=== PATIENT | female | born 1935 | race Caucasian/White ===

== ENCOUNTER 2016-07-27 09:51 | Emergency (ER) | payer MEDICARE ==
[~2016-07-27] VITALS: Ht 154.9 cm; Wt 81.8 kg
[~2016-07-27 09:51] MED LIST: INDA1.252 PO; LISI40TA PO
--- NOTE | 2016-07-27 10:09 | ED.REPORT ---
HPI-General Illness Date of Service Jul 27, 2016 ED Provider: Dr. Vini Alexander, Nicole.O. 81 year old female w/ a hx of HTN, hyperlipidemia, dementia, anxiety, and panic attacks presents to the ED via EMS from [facility] due to a panic attack and SOB. Per medics, patient was tachypneic, anxious, and agitated in her room. She was given 1 mg Versed en route and is now more calm, alert, knows where she is, but unable to verbalize why she is here. Pt is unable to give PMHx or ROS. Nursing Notes Stated Complaint: ANXIETY Nursing Notes Reviewed: Yes Allergies: Coded Allergies: No Known Allergies (Verified , 10/14/07) Scheduled Indapamide (Indapamide) 1.25 Mg Tablet 1.25 MG PO DAILY Lisinopril (Lisinopril) 40 Mg Tablet 40 MG PO DAILY General Time Seen by MD: 10:08 Chief Complaint Other (shortness of breath) Hx Obtained From: Patient, EMS Arrived By: Ambulance Sudden in Onset?: Yes Onset Occurred: Just prior to arrival Symptom Duration: Since onset Severity: Current: No pain currently Past Medical History Past Medical History Hypertension Hyperlipidemia dementia anxiety panic attacks Past Surgical History Left hip surgery Reports: Hysterectomy, Tonsillectomy Family History Cancer Smoking History Former Smoker, Unknown if Ever Smoker Social History Drug Use: Denies drug use Other Social History: Lives in [facility], Local resident Ambulatory Status Independent Review of Systems Unable to Obtain ROS Patient condition Physical Exam Vital Signs Vital Signs Date Time Temp Pulse Resp B/P Pulse Ox O2 Delivery O2 Flow Rate FiO2 07/27/16 14:24 61 19 164/52 100 07/27/16 11:20 60 18 169/72 96 Nasal Cannula 2 07/27/16 10:18 35.8 61 14 127/79 100 Nasal Cannula 2 Initial VS: Reviewed Head / Eyes: Atraumatic, Normocephalic, PERRL ENT: Mucous membranes moist, Conjunctiva normal, No scleral icterus Respiratory: Breath sounds normal, Clear to auscultation, No respiratory distress Cardiovascular: Regular rate & rhythm, Heart sounds normal, Intact distal pulses Abdomen / GI: Soft, Non-tender, No guarding, No rebound, No distention Extremities: Vascular intact, Neuro intact, No swelling, No tenderness Skin: Warm, Dry, No cyanosis Neurologic: Alert, Oriented, Nonfocal Psychiatric: Mood/affect normal, Behavior normal, Normal thought content General/Constitutional: Awake Alertness: Positive: Confused Distress / Hydration: Positive: Distress mild Behavior: Positive: Agitated, Anxious, Tearful Interpretation & Diagnostics Lab Results Interpretation Result Diagram: 07/27/16 1032 07/27/16 1032 Test 07/27/16 10:32 07/27/16 11:30 07/27/16 12:25 07/27/16 13:50 White Blood Count 10.1th/mm3 (3.8-10.1) Red Blood Count 4.74mil/mm3 (3.90-5.20) Hemoglobin 14.6g/dL (12.0-15.6) Hematocrit 41.5% (35.0-46.0) Mean Corpuscular Volume 87.6fL (81-100) Mean Corpuscular Hemoglobin 30.8pg (27.0-35.0) Mean Corpuscular Hemoglobin Concent 35.2% (32.0-37.0) Red Cell Distribution Width 14.4% (12.3-15.4) Platelet Count 410bil/L (150-400) Neutrophils (%) (Auto) 41.8% (40-74) Lymphocytes (%) (Auto) 47.1% (14-46) Monocytes (%) (Auto) 8.4% (4-12) Eosinophils (%) (Auto) 1.6% (0-5) Basophils (%) (Auto) 0.4% (0-3) Sodium Level 135mEq/L (134-144) Potassium Level 4.2mEq/L (3.5-5.2) Chloride Level 97mEq/L (97-108) Carbon Dioxide Level 19mmol/L (18-29) Blood Urea Nitrogen 16mg/dL (8-27) Creatinine 0.85mg/dL (0.57-1.00) Estimat Glomerular Filtration Rate 92mL/min (>59) Glucose Level 181mg/dL (60-99) Calcium Level 9.1mg/dL (8.5-10.1) Magnesium Level 2.1mg/dL (1.6-2.6) Total Bilirubin 0.8mg/dL (0.0-1.2) Aspartate Amino Transf (AST/SGOT) 22U/L (0-50) Alanine Aminotransferase (ALT/SGPT) 22U/L (0-32) Alkaline Phosphatase 63U/L (25-165) Total Protein 7.2g/dL (6.4-8.4) Albumin 4.3g/dL (3.4-5.0) D-Dimer 1.2mg/L (<0.50) Urine Color Straw (YELLOW) Urine Appearance Hazy (CLEAR,HAZY) Urine pH 7.5 (5.0-8.0) Urine Specific [place] 1.010 (1.003-1.035) Urine Protein Negativemg/dL (NEG,TRACE) Urine Glucose (UA) Negativemg/dL (NEGATIVE) Urine Ketones Negativemg/dL (NEGATIVE) Urine Occult Blood Negative (NEGATIVE) Urine Nitrite Negative (NEGATIVE) Urine Bilirubin Negative (NEGATIVE) Urine Urobilinogen Normalmg/dL (NORMAL) Urine Leukocyte Esterase Negative (NEGATIVE) Urine RBC 0-2/hpf (0-2) Urine WBC 0-5/hpf (0-5) Urine Epithelial Cells Occasional/hpf (NONE-MOD) Urine Crystals None seen (NONE SEEN) Urine Bacteria None/hpf (NONE-FEW) Urine Hyaline Casts None/lpf (NONE) Urine Granular Casts None seen (NONE SEEN) Urine Waxy Casts None seen (NONE SEEN) Urine Red Blood Cell Casts None seen (NONE SEEN) Urine White Blood Cell Casts None seen (NONE SEEN) Urine Mucus None seen (None Seen) Urine Trichomonas None seen (NONE SEEN) Urine Yeast None (NONE SEEN) Urinalysis Comment None Urine Culture Reflexed Not indicated Troponin T < 0.010ug/L (0.0-0.011) Test 07/27/16 14:33 Lactic Acid Level 1.6mmol/L (0.4-2.0) ECG Interpretation Time: 10:55 Interpreted by: ED physician Normal ECG Interpretation: Normal ECG w/ rate of... (61) X-Ray Chest Interpretation Chest Xray Interpretation: IMPRESSION: 1. Linear bibasilar opacities redemonstrated likely representing scarring or atelectasis. 2. Moderate-sized hiatal hernia. Dictated by: Pascual Garcia M.D. on 07/27/2016 at 10:48 Approved by: Pascual Garcia M.D. on 07/27/2016 at 10:51 View: Portable Interpretation / Wet Read by: Interpret - Radiologist Re-Eval/Medical Decision Med Decision/Clinical Course No obvious etiology for patient's dyspnea can be found. I discussed with patient's PCP who will follow the patient up. Return in follow-up impressions given. Time of Eval: 14:48 Patient Status: Condition improved Re-Evaluation/Progress Note: Pt rechecked. Imaging does not show any signs of acute abnormalities. She is feeling slightly better after taking Versed but still a bit anxious, which is baseline. F/U and RTER warnings given. All questions addressed. Consultation : Referral / Consult Name: Radha Leo Consulted With: Primary care physician Call Returned at: 14:49 Speedboat Operator: Agrees with eval, Agrees with plan Note: Case discussed. No clinical reasons to admit patient. Patient is very anxious, but this is baseline for her. Counseled Regarding: Diagnosis, Lab results, Need for follow-up, When/why to return to ED Discharge & Departure Primary Impression: Dyspnea Dyspnea type: unspecified Qualified Code: R06.00 - Dyspnea, unspecified Disposition: Home Discharge Condition All VS Reviewed: Yes Condition: Stable Additional Instructions: After reviewing your labs and imaging, your results are normal and there are no signs of bladder infection, heart attack, blood clots, or pneumonia. Follow up with your primary care physician as needed. Return to the Emergency Department if you experience any new or worsening symptoms. We hope you feel better soon! Referrals: Radha Leo (PCP) Scribe Attestation Portion of this note were transcribed by Ninoska Das. I, Dr. Alexander, personally performed the history, physical exam, and medical decision-making: I reviewed and confirmed the accuracy for the information in the transcribed note. Signed by: alcon Skinner, 07/27/16 1500 copies to: Radha Leo Timothy S DO Jul 27, 2016 10:09 NINOSKA DAS Jul 27, 2016 10:25
[2016-07-27 10:18] VITALS: BP 127/79; PULSE 61; RESP 14; O2SAT 100
[2016-07-27] MEDS ORDERED: 0.9% Sodium Chloride 500 ML IV ONE ×2 (10:30→11:30)
[2016-07-27 10:35] LABS: BASOPHILS % (AUTO) 0.4 % (0-3); EOSINOPHILS % (AUTO) 1.6 % (0-5); MONOCYTES % (AUTO) 8.4 % (4-12); Mean Corpuscular Hemoglobin 30.8 pg (27.0-35.0); Mean Corpuscular Volume 87.6 fL (81-100); NEUTROPHILS % (AUTO) 41.8 % (40-74); Platelet Count 410 bil/L (150-400)
[2016-07-27 10:48] LABS: TROPONIN T 0.01 ug/L (0.0-0.011)
--- NOTE | 2016-07-27 10:53 | DRSVH ---
PROCEDURE: X-RAY CHEST ONE VIEW, PORTABLE ([id number]) INDICATIONS: dyspnea TECHNIQUE: One view of the chest was acquired. COMPARISON: [facility], CR, XR CHEST 2VW, 03/19/2016, 11:56. FINDINGS: Surgical changes and devices: None. Lungs and pleura: No pleural effusions or pneumothorax. There are linear opacities redemonstrated i n the lung bases likely representing scarring or atelectasis. Mediastinum: Mediastinal contours appear unchanged. There is a moderate-sized hiatal hernia again n oted. Heart size is normal. Bones and chest wall: No suspicious bony lesions. Overlying soft tissues appear unremarkable. IMPRESSION: 1. Linear bibasilar opacities redemonstrated likely representing scarring or atelectasis. 2. Moderate-sized hiatal hernia. Dictated by: Pascual Garcia M.D. on 07/27/2016 at 10:48 Approved by: Pascual Garcia M.D. on 07/27/2016 at 10:51
[2016-07-27 10:59] LABS: Magnesium 2.1 mg/dL (1.6-2.6)
[2016-07-27 11:20] VITALS: BP 169/72; PULSE 60; RESP 18; O2SAT 96
[2016-07-27 12:36] LABS: APPEARANCE,URINE HAZY (CLEAR,HAZY); COLOR,URINE STRAW (YELLOW); OCCULT BLOOD,URINE NEGATIVE (NEGATIVE); PH,URINE 7.5 (5.0-8.0); UROBILINOGEN,URINE NORMAL (NORMAL)
[2016-07-27 14:24] VITALS: BP 164/52; PULSE 61; RESP 19; O2SAT 100
--- NOTE | 2016-07-27 14:38 | DRSVH ---
PROCEDURE: CT ANGIO CHEST PULMONARY EMBOLISM ([id number]) INDICATIONS: dyspnea, elevated ddimer TECHNIQUE: After the administration of intravenous contrast, 2 mm thick sections acquired from the pulmonary api davis to the posterior costophrenic angles. 3-dimensional maximum intensity projection (MIP) coronal a nd sagittal reformats were then acquired through the thorax. For radiation dose reduction, the follo wing was used: automated exposure control, adjustment of mA and/or kV according to patient size. COMPARISON: [facility], CT, CT ABD PELVIS W CON, 04/23/2016, 15:56. [facility], CT, CT ANGIO CHEST PE, 03/19/2016, 13:22. FINDINGS: Image quality: Excellent. Pulmonary arteries: Pulmonary arteries are normal in size, and demonstrate no intraluminal filling d efects to suggest central pulmonary embolism. Lungs and pleura: There are biapical scars. Small subpleural nodules in the gravity dependent subple ural air within upper lobes are probably caused by subpleural scarring/atelectasis. Lungs are otherwi se clear. No pleural effusions or pneumothorax. Central and peripheral airways are patent. Mediastinum: Heart size is normal, without pericardial effusion. No mediastinal or hilar adenopathy . Thoracic aorta is normal in caliber and enhancement. Esophagus is normal in caliber. There is a l arge hiatal hernia. Bones and chest wall: No suspicious bony lesions. Ribs and thoracic spine appear intact throughout. Thyroid gland is normal. No axillary or supraclavicular adenopathy. Abdomen: Irregular soft tissue nodules posterior to liver are again noted, unchanged. There is a 3.6 cm diameter cyst in the superior pole of the left kidney.. IMPRESSION: 1. No evidence for central pulmonary embolism. 2. Moderate to large sized hiatal hernia. 3. Severe hepatic steatosis. 4. Irregular soft tissue nodules posterior to liver are stable. 5. Left renal cyst . Dictated by: Lisa Rice M.D. on 07/27/2016 at 14:23 Approved by: Lisa Rice M.D. on 07/27/2016 at 14:37
[2016-07-27 15:23] VITALS: BP 155/45; PULSE 71; RESP 20; O2SAT 98
== END 2016-07-27 15:24 | disposition home or self-care (01) ==
LOC: EDUNIT# 09:51 → EDBD 09:51 → SED 09:51
DX: R06.00 Dyspnea, unspecified (principal); I10 Essential (primary) hypertension; E78.5 Hyperlipidemia, unspecified; Z90.710 Acquired absence of both cervix and uterus; Z87.891 Personal history of nicotine dependence
CPT/HCPCS: 36415; 71010; 71275; 80053; 81000; 83605; 83735; 84484; 85025; 85379; 93005; 96360; 99285; J7040; Q9967

== ENCOUNTER 2016-08-28 15:11 | Inpatient (IN) | payer MEDICARE ==
[~2016-08-28] VITALS: Ht 157.5 cm; Wt 77.2 kg
[2016-08-28 15:15] VITALS: BP 137/72; PULSE 61; RESP 15; O2SAT 100
--- NOTE | 2016-08-28 15:29 | ED.REPORT ---
HPI-General Illness Date of Service Aug 28, 2016 ED Provider: Farzad Pardo MD An 81 year old female with a medical history including hypertension, dementia, and abdominal mass of unclear etiology presents to the ED via EMS accompanied by her close friend reporting an "anxiety attack" onset 1200 this morning. Associated symptoms include headache, confusion, generalized pain, and shortness of breath per the patient's friend. The patient was given 2mg Ativan at 1300 today. There is also concern for generalized weakness as staff at the patient's assisted living home found her sitting on the floor this morning and the history was unclear as to whether she fell or sat down. She has had increasing episodes of anxiety with similar symptoms over the past few months, with no prior history of anxiety. The patient presents uncomfortable-appearing but denies pain currently. She is only mildly cooperative and history is limited due to the patient's condition and baseline dementia. EMS found the patient with a BP of 169/83 and otherwise normal vital signs. The patient was seen in the ED four days ago with similar symptoms. Nursing Notes Stated Complaint: ANXIETY ATTACK Chief Complaint: General Complaint Nursing Notes Reviewed: Yes ([employer] not reconciled) Allergies: Coded Allergies: No Known Allergies (Verified , 10/14/07) Scheduled Citalopram (Citalopram) 10 Mg Tablet 10 MG PO QAM Indapamide (Indapamide) 1.25 Mg Tablet 1.25 MG PO QAM Lisinopril (Lisinopril) 40 Mg Tablet 40 MG PO DAILY Scheduled PRN Lorazepam (Lorazepam) 1 Mg Tablet 1 MG PO DAILY PRN PRN For Anxiety or Agitation General Time Seen by MD: 15:26 Chief Complaint Other (Anxiety) Hx Obtained From: Other family... (Close friend) Unable to Obtain Hx: Patient condition, Uncooperative Arrived By: Ambulance Sudden in Onset?: Yes Onset Occurred: 1 - 4 hours ago Symptom Duration: Since onset Location: : Abdomen: Back: Chest: Head Severity: Current: No pain currently (Patient appears uncomfortable but denies pain) Severity: Maximum: Moderate Associated with: Reports: Headache, Pain (Generalized), Shortness of breath Pertinent Negative: Relieved by nothing Recent Healthcare: Recent doctor visit Similar Sx Previous: Yes Past Medical History Past Medical History Hypertension Hyperlipidemia Dementia Anxiety Panic attacks Abdominal Mass of unclear etiology and signficance - being followed Past Surgical History Left hip surgery Reports: Hysterectomy, Tonsillectomy Family History Cancer Smoking History Never Smoker Social History Drug Use: Denies drug use Other Social History: Lives in [facility], Local resident Ambulatory Status Independent Review of Systems Unable to Obtain ROS Patient condition, Uncooperative, Mental status Physical Exam Vital Signs Vital Signs Date Time Temp Pulse Resp B/P Pulse Ox O2 Delivery O2 Flow Rate FiO2 08/28/16 17:39 78 17 140/69 99 Room Air 08/28/16 16:14 60 9 139/46 100 Room Air 08/28/16 15:15 36.6 61 15 137/72 100 Room Air Initial VS: Reviewed, Unavailable (no vitals on chart, ordered) Respiratory: Breath sounds normal, Clear to auscultation, No respiratory distress Abdomen / GI: Soft, Non-tender Skin: Warm, Dry General/Constitutional: Awake, Alert Behavior: Positive: Anxious Appearance / Presentation: Positive: Uncomfortable (Appears uncomfortable but denies pain) Only mildly cooperative Head / Eyes: Atraumatic, Normocephalic Pupils 3mm bilaterally Cardiovascular: Heart rate NL, Regular rhythm, Heart sounds NL Trace edema bilaterally Lower Extremity / Pelvis / MS: Atraumatic, Inspection NL NEUROLOGIC: No focal deficits Interpretation & Diagnostics Lab Results Interpretation Result Diagram: 08/28/16 1549 08/28/16 1549 Test 08/28/16 15:25 08/28/16 15:49 08/28/16 17:17 Hold Urine Received (Received) White Blood Count 12.7th/mm3 (3.8-10.1) Red Blood Count 4.63mil/mm3 (3.90-5.20) Hemoglobin 14.0g/dL (12.0-15.6) Hematocrit 39.2% (35.0-46.0) Mean Corpuscular Volume 84.7fL (81-100) Mean Corpuscular Hemoglobin 30.2pg (27.0-35.0) Mean Corpuscular Hemoglobin Concent 35.7% (32.0-37.0) Red Cell Distribution Width 13.8% (12.3-15.4) Platelet Count 409bil/L (150-400) Neutrophils (%) (Auto) 64.0% (40-74) Lymphocytes (%) (Auto) 23.5% (14-46) Monocytes (%) (Auto) 9.8% (4-12) Eosinophils (%) (Auto) 1.3% (0-5) Basophils (%) (Auto) 0.6% (0-3) Sodium Level 130mEq/L (134-144) Potassium Level 3.4mEq/L (3.5-5.2) Chloride Level 91mEq/L (97-108) Carbon Dioxide Level 19mmol/L (18-29) Blood Urea Nitrogen 22mg/dL (8-27) Creatinine 0.94mg/dL (0.57-1.00) Estimat Glomerular Filtration Rate 82mL/min (>59) Glucose Level 131mg/dL (60-99) Lactic Acid Level 1.5mmol/L (0.4-2.0) Calcium Level 9.6mg/dL (8.5-10.1) Magnesium Level 2.2mg/dL (1.6-2.6) Total Bilirubin 0.6mg/dL (0.0-1.2) Aspartate Amino Transf (AST/SGOT) 26U/L (0-50) Alanine Aminotransferase (ALT/SGPT) 21U/L (0-32) Alkaline Phosphatase 65U/L (25-165) Troponin T < 0.010ug/L (0.0-0.011) Total Protein 7.4g/dL (6.4-8.4) Albumin 4.0g/dL (3.4-5.0) Urine Color Yellow (YELLOW) Urine Appearance Cloudy (CLEAR,HAZY) Urine pH 5.5 (5.0-8.0) Urine Specific [place] 1.010 (1.003-1.035) Urine Protein Negativemg/dL (NEG,TRACE) Urine Glucose (UA) Negativemg/dL (NEGATIVE) Urine Ketones Tracemg/dL (NEGATIVE) Urine Occult Blood Small (NEGATIVE) Urine Nitrite Negative (NEGATIVE) Urine Bilirubin Negative (NEGATIVE) Urine Urobilinogen Normalmg/dL (NORMAL) Urine Leukocyte Esterase Large (NEGATIVE) Urine RBC 0-2/hpf (0-2) Urine WBC Packed/hpf (0-5) Urine Epithelial Cells Occasional/hpf (NONE-MOD) Urine Crystals None seen (NONE SEEN) Urine Bacteria Moderate/hpf (NONE-FEW) Urine Hyaline Casts None/lpf (NONE) Urine Granular Casts None seen (NONE SEEN) Urine Waxy Casts None seen (NONE SEEN) Urine Red Blood Cell Casts None seen (NONE SEEN) Urine White Blood Cell Casts None seen (NONE SEEN) Urine Mucus None seen (None Seen) Urine Trichomonas None seen (NONE SEEN) Urine Yeast None (NONE SEEN) Urinalysis Comment None Urine Culture Reflexed Indicated Lab Results Interpretation: CBC white count 12.7 CMP's mild hyponatremia sodium 1:30, potassium 3.4 UA packed with white cells Lactic acid normal Blood cultures 2 pending ECG Interpretation ECG Interpretation: Normal sinus rhythm rate 62 No abnormalities Time: 15:39 Interpreted by: ED physician X-Ray Chest Interpretation Chest Xray Interpretation: IMPRESSION: No acute process. Hiatal hernia. Dictated by: Zoila Tolentino M.D. on 08/28/2016 at 17:03 View: Portable, 1 view Interpretation / Wet Read by: Interpret - Radiologist Re-Eval/Medical Decision Med Decision/Clinical Course Felipa 81-year-old female lives at assisted living who is brought in with increased weakness, altered mental status with a "anxiety attack". Of note the patient does not have a previous history of anxiety attacks according to the friend who is known the patient for years, this is been a couple of events labeled as anxiety over the past month or 2. The patient has been started on some lorazepam, but it did not help. The patient was apparently somewhat weak yesterday, and this morning was found by staff sitting down, more confused. The friend who accompanies the patient says they checked on her last night she seemed to doing okay but she is more confused and more agitated today. I cannot get the patient to give any history at all today. Just, she even appears uncomfortable-and has been apparently complaining of entire body aches to the friend, but I cannot get her to endorse any complaints, or provide any useful history in the department. She does have severe dementia at baseline. The patient is not febrile or toxic. She appears anxious, but I cannot identify an overt source or cause on physical exam. Her workup was notable for urine that is packed with white cells as concerning for UTI, and given this is a sudden a different change- a UTI certainly is potential. The patient again is in assisted-living, and has not a prison facility at this stage. Her blood work is normal. Blood cultures are pending. Chest x-ray is negative. The patient is being started on ceftriaxone. She also received 1 mg of Haldol to help several rebound which worked on reevaluation he appears much more comfortable. Given the findings of her pronounced UTI, behavioral changes and a demented the patient illicit assisted living, the plan is admission for continued initial management. Source of Hx: Old records Time of Eval: 17:48 Patient Status: Condition improved Re-Evaluation/Progress Note: Patient appears more comfortable. Discussed with family lab and x-ray results, diagnosis, and plan for admit. Patient agrees with plan for care and all questions were addressed. Consultation : Referral / Consult Name: Daniel Talley MD Consulted With: Hospitalist Call Returned at: 18:17 Workers Compensation Coordinator: Agrees with eval, Agrees with plan, Accepts admit Differential Diagnosis: Positive: Urinary tract infection, Negative: Abdominal pain, Acute coronary syndrome, Fracture Counseled Regarding: Diagnosis, Lab results, Need for admission Discharge & Departure Primary Impression: Urinary tract infection Additional Impression: Dementia Disposition: ADMITTED TO HOSPITAL Discharge Condition All VS Reviewed: Yes Condition: Improved Referrals: Radha Leo (PCP) Eliasibcaterina Attestation Portions of this note were transcribed by Nhi Coreas. I, Dr. Pardo, personally performed the history, physical exam, and medical decision-making; I reviewed and confirmed the accuracy of the information in the transcribed note. Signed by: Raina Langston, 08/28/2016, 19:05 copies to: Radha Leo Matthew F MD Aug 28, 2016 15:29 [facility] Aug 28, 2016 15:41
[2016-08-28] MEDS ORDERED: Haloperidol 5 mg/mL Inj IVPUSH ONE (15:50)
[2016-08-28 15:58] LABS: BASOPHILS % (AUTO) 0.6 % (0-3); EOSINOPHILS % (AUTO) 1.3 % (0-5); MONOCYTES % (AUTO) 9.8 % (4-12); Mean Corpuscular Hemoglobin 30.2 pg (27.0-35.0); Mean Corpuscular Volume 84.7 fL (81-100); Platelet Count 409 bil/L (150-400)
[2016-08-28 16:14] VITALS: BP 139/46; PULSE 60; RESP 9; O2SAT 100
[2016-08-28 16:31] LABS: TROPONIN T < 0.010 ug/L (0.0-0.011)
[2016-08-28 16:39] LABS: Magnesium 2.2 mg/dL (1.6-2.6)
--- NOTE | 2016-08-28 17:06 | DRSVH ---
PROCEDURE: X-RAY CHEST ONE VIEW, PORTABLE ([id number]) INDICATIONS: RULE OUT SEPSIS TECHNIQUE: One view of the chest was acquired. COMPARISON: [facility], CR, XR CHEST 1VW (PORTABLE), 07/27/2016, 10:36. [facility], CR, XR CHEST 1VW (PORTABLE), 03/19/2016, 9:52. FINDINGS: Surgical changes and devices: None. Lungs and pleura: No pleural effusions or pneumothorax. Lungs are clear. Mediastinum: Moderate hiatal hernia. Mediastinal contours otherwise appear normal. Heart size is no rmal. Bones and chest wall: No suspicious bony lesions. Overlying soft tissues appear unremarkable. IMPRESSION: No acute process. Hiatal hernia. Dictated by: Zoila Tolentino M.D. on 08/28/2016 at 17:03 Approved by: Zoila Tolentino M.D. on 08/28/2016 at 17:03
[2016-08-28 17:26] LABS: APPEARANCE,URINE CLOUDY (CLEAR,HAZY); COLOR,URINE YELLOW (YELLOW); OCCULT BLOOD,URINE SMALL (NEGATIVE); PH,URINE 5.5 (5.0-8.0); UROBILINOGEN,URINE NORMAL (NORMAL)
[2016-08-28] MEDS ORDERED: cefTRIAXone Inj 2,000 MG in Dextrose 5% Minibag Plus 50 ML IV ONE (17:35)
[2016-08-28 17:39] VITALS: BP 140/69; PULSE 78; RESP 17; O2SAT 99
[2016-08-28] MEDS ORDERED: CITA10TA9 PO (17:52)
[2016-08-28] MEDS ORDERED: LORA1TAB PO (17:52)
[2016-08-28] MEDS ORDERED: Ondansetron 2 mg/mL 2 mL Inj IVPUSH PRN ×2 (18:25→23:30)
[2016-08-28] MEDS ORDERED: 0.9% Sodium Chloride 1,000 ML IV SCH (18:25)
[2016-08-28] MEDS ORDERED: Alum-Mag Hydrox-Simeth 30 mL Suspension PO PRN (18:25)
--- NOTE | 2016-08-28 19:30 | NUR ---
admission patient admitted to room 1010. family at bedside. (friend Santo, son Fidel). alert to person and place. re oriented to year. very anxious. tachypneic secondary to anxiety. lungs are clear to auscultation. no cough. patient is very afraid. reassured. tima alarm on. bed alarm on. dr godinez notified by that patient is here in room 1010. care plan reviewed with family. and patient. no questions at this time.
[2016-08-28 19:41] VITALS: BP 127/81; PULSE 62; RESP 17; O2SAT 99
--- NOTE | 2016-08-28 21:11 | NUR ---
fall precautions patient has unsteady gait. sba to restroom. tima alarm on. bed alarm on. sitter outside of room 1:2 patient very afraid to stand up. needs encouragement. resting with eyes shut at this time. care ongoing.
--- NOTE | 2016-08-28 21:16 | NUR ---
skin assessment - unable to complete at this time. attempted skin assessment. patient refuses to allow me to check her serafin area under her breasts, groin or axilla. but her visible skin and feet are within normal limits.
[2016-08-28] MEDS ORDERED: Thiamine Inj 100 MG, Folic Acid Inj 1 MG, Magnesium Sulfate 50% Inj 2 GM, Multivitamins... IV ONE ×5 (23:20)
--- NOTE | 2016-08-28 23:26 | PCM.HPMED ---
Subjective Date of Service Aug 28, 2016 Primary Provider: Admitting Physician: Daniel Talley MD Primary Care Physician: Radha Leo Attending Physician: Daniel Talley MD Chief Complaint: HISTORY was OBTAINED FROM FRIEND 12 YEARS who sees her 3x per week / Social DJ NOTES History of present illness 81-year-old female with malaise since yesterday and so weak today that she could not get up off the floor after she sat down, also appeared confused and agitated at assisted living, deemed to have had a panic attack. Per friend, she has not been coughing sneezing diarrhea. Unlike last UTI admission, this time she has no urinary urgency, no vaginal itch. Per assisted living, she was thought to have an anxiety attack. EtOH intake is "not much" In the ER vital signs stable, Rocephin and Haldol for anxiety, she would not allow groin examination by nurse March 2016 Escherichia coli UTI resistant to ampicillin and intermediate today imipenem otherwise pansensitive, associated Ground-level fall Review of Systems - none of the following - F/C/sick contact / wt change/ WILKES / sob / cough / cp / acid reflux / n/v/diarrhea / bleeding/bruising / leg swelling / change in voiding / yeast infections / rash ambulates FAMILY HX cancer/Alzheimer's SOCIAL HX lives in assisted living facility, never smoker, EtOH+ MEDICATIONS Scheduled Citalopram (Citalopram) 10 Mg Tablet 10 MG PO QAM Indapamide (Indapamide) 1.25 Mg Tablet 1.25 MG PO QAM Lisinopril (Lisinopril) 40 Mg Tablet 40 MG PO DAILY Lorazepam (Lorazepam) 1 Mg Tablet 1 MG PO DAILY PRN PRN For Anxiety or Agitation Past Medical/Surgical HX Hypertension Hyperlipidemia Dementia/Alzheimer's Anxiety associated shortness of breath / Panic attacks Abdominal Mass of unclear etiology and signficance - being followed Recurrent UTIs Endometriosis Past Surgical History Left hip surgery Hysterectomy, Tonsillectomy Esophagitis incidental finding with hiatal hernia and nighttime complaint of acid reflux Echo September 2015 EF 65% diastolic grade 1 dysfunction Exam on admission 2L O2 while asleep NAD A and O x 3 mood affect WNL NC/AT no icterus no injected eyes EOMI PERRL /no pharyngeal lesions/ no oral lesions / hearing intact Supple neck CTAB equal chest rise / no accessory muscle use / speaks in full sentences / no rrw RRR S1 S2 / no mrg / 2+ radial pulses Soft nt nd + BS no hepatosplenomegaly, TENDER TO SUPRAPUBIC PALPATION pseudoedema no cyanosis no ecchymosis of lower extremities No rash / no jaundice BRANCH symmetrical facies Trop negative X2 UA negative yeast, but positive for leukocyte Estrace, WBCs, bacteria LFT normal Imaging cxr NEG ACUTE A/P Active issues and reason for admission Recurrent UTI associated leukocytosis and altered mental status -- Rocephin Hyponatremia 130/hypokalemia likely due to poor oral intake -- Hold indapamide/lisinopril --serial bmp --s/p NS, start banana bag --pending TSH EtOH hx --banana bag and ativan Chronic issues known prior to admission, present on admission Hypertension Hyperlipidemia Dementia/Alzheimer's Anxiety associated shortness of breath / Panic attacks Abdominal Mass of unclear etiology and signficance - being followed Recurrent UTIs Endometriosis Esophagitis incidental finding with hiatal hernia and nighttime complaint of acid reflux Echo September 2015 EF 65% diastolic grade 1 dysfunction --start famotidine Diet cardiac DVT prophylaxis lovenox scd ambulate Disposition inpt status DO NOT INTUBATE DO NOT RESUSCITATE on prior polst Form on prior admission Assessment and plan were discussed with patient and friend Allergies Coded Allergies: No Known Allergies (Verified , 10/14/07) PMH Social History Hx Alcohol Use: Yes (not much ) Hx Substance Use: No Smoking Status: Never Smoker Exam Vital Signs Vital Sign - Last Date Time Temp Pulse Resp B/P Pulse Ox O2 Delivery O2 Flow Rate FiO2 08/28/16 19:41 36.7 62 17 127/81 99 Room Air Lab and Diagnostics Result Diagram: 08/28/16 1549 08/28/16 1549 Daniel Talley MD Aug 28, 2016 23:26
[2016-08-29] MEDS: Sodium Chloride LOK Flush 10 mL Syringe IVFLUSH SCH ×4 (00:30→20:51)
[2016-08-29 00:36] LABS: Phosphorus 3.3 mg/dL (2.5-4.9); TROPONIN T 0.01 ug/L (0.0-0.011)
[2016-08-29] MEDS ORDERED: Potassium Chloride 20 mEq SR Tablet PO ONE (02:25)
[2016-08-29 05:04] VITALS: BP 148/83; PULSE 64; RESP 15; O2SAT 99
[2016-08-29 05:06] LABS: BASOPHILS % (AUTO) 0.3 % (0-3); EOSINOPHILS % (AUTO) 2.3 % (0-5); MONOCYTES % (AUTO) 9.7 % (4-12); Mean Corpuscular Hemoglobin 30.7 pg (27.0-35.0); NEUTROPHILS % (AUTO) 54.4 % (40-74); Platelet Count 405 bil/L (150-400)
[2016-08-29 05:29] LABS: TROPONIN T 0.01 ug/L (0.0-0.011)
[2016-08-29 06:08] VITALS: PULSE 65
--- NOTE | 2016-08-29 07:06 | NUR ---
sleep - activity patient slept well intermittently. very fearful about getting oob to the [facility]. needs one person assist and encouragement. oriented to place and person. reoriented to time. placed on telemetry. sinus rhythm. iv fluids infusing. care ongoing. fall precautions in place
[2016-08-29] MEDS ORDERED: Lisinopril 40 Tablet PO SCH (08:30)
[2016-08-29 09:02] VITALS: PULSE 69
[2016-08-29] MEDS: cefTRIAXone Inj 2,000 MG in Dextrose 5% Minibag Plus 50 ML IV SCH (09:16)
[2016-08-29 10:29] VITALS: BP 187/81; PULSE 71; RESP 18; O2SAT 99
[2016-08-29] MEDS ORDERED: LORazepam 0.5 mg Tablet PO PRN (12:15)
[2016-08-29] MEDS: BusPIRone 15 mg Dividose Tablet PO SCH ×2 (13:07→20:48)
[2016-08-29 14:08] LABS: Magnesium 2.7 mg/dL (1.6-2.6); Phosphorus 2.7 mg/dL (2.5-4.9)
--- NOTE | 2016-08-29 15:18 | NUR ---
NUTRITION ASSESSMENT: ASSESS:81 YO female admitted with UTI, confusion, weakness after series of panic attacks at her assisted living facility. Apparently these panic attacks are frequent in a patient with Alzheimer's dementia. She has had no recent weight loss. In fact, she has had a 2.8 kg weight gain x 5 months. PO intake general diet 50% x 1 tray. Code status: Full. PMHx:HTN, dyslipidemia, Alzheimer's dementia, anxiety, panic attacks, ETOH (CIWA canceled today), abdominal mass, recurrent UTI's. DIET:General. PO intake 50% x 1 tray. LABS: K+ 3.4, Glu 129, MG 2.7. MEDICATIONS: Reviewed. NUTRITION FOCUSED PHYSICAL ASSESSMENT: GI symptoms / stool: No stool reported.Anthony: 19. Skin Integrity: No issues reported. ANTHROPOMETRICS: Current Wt: 77.3 kgBMI: 31.0 kg/m2. IBW: 50 kg (154.6% IBW) ESTIMATED NEEDS (CLASS I OBESITY): Calories: 1100 - 1250 kcal (22 - 25 kcal / kg IBW) Protein: 90 - 100 g protein (1.8 - 2.0 g / kg IBW) Fluid: Approx. 1933 mL fluid (25 mL / kg BW) NUTRITION DIAGNOSIS: 1)No diagnosis at this time. INTERVENTION: 1) In the event PO declines or remains approx. 50% trays, recommend add supplements to trays. MONITOR/EVALUATE: Diet tolerance, PO intake, labs, GI/nutrition status. Follow up per moderate nutrition risk guidelines.
--- NOTE | 2016-08-29 16:20 | NUR ---
Social Work-initial assessment: Social Work: Initial Assessment Data & Assessment: See initial assessment. Pt is a 81 y/o female who was admitted on 08/28/16 for UTI and Confusion per H&P. Pt's insurance is [employer] and PCP is Radha Leo MD. EMR Reviewed. AMY met with pt and patient's daughter, Nena Brandt [phone], to discuss discharge planning, SW role explained and initial assessment complete. Pt resides at [facility]. Patient family states that they will purchase a walker. Pt does not drive. Pt has no HH history. Patient has been to [email or web address] in the past. Pt has completed DPOA/ advanced directive and SW requested a copy. Patient DPOA is her son Robert. Pt has no termite renewal inspector care or VA benefits. Pt's family to provide transport to [facility] at discharge. AMY Yepez contacted [facility] and they will need to complete a bedside assessment before the patient returns. Patient clinical were faxed to [facility]. AMY provided phone number and plan on white board in room. SW will continue to follow. Plan: Pt to likely discharge back to [facility] via POV. Pt's family is supportive. SW will continue to follow. Dayo Cody LMSW, DONNA Addendum: 08/29/16 at 1636 by DAYO CODY SS Amended: Links added.
--- NOTE | 2016-08-29 17:01 | DRSVH ---
PROCEDURE: CT BRAIN WITHOUT CONTRAST ([id number]) INDICATIONS: fall, hit head TECHNIQUE: Noncontrast 4.5 mm thick angled axial sections acquired from the foramen magnum to the vertex, with c oronal reformats. COMPARISON: [facility], CT, CT BRAIN WO CON, 03/19/2016, 9:56. FINDINGS: Image quality: Excellent. CSF spaces: Basal cisterns are patent. No extra-axial fluid collections. The ventricles are symmet iesha in size and shape. There is pvlv-vr-ddmphjju cerebral volume loss, with resultant ventricular an d sulcal prominence. Brain: No intracranial hemorrhage, mass, or mass effect. There are subcortical, periventricular and deep white matter hypodensities consistent with yqek-qd-pouofozv chronic small vessel ischemic perez es. There is also a small hypodensity in the right thalamus compatible with a prior lacunar infarct, unchanged from the prior study. There is intracranial internal carotid artery atherosclerosis. Skull and face: Calvarium and visualized facial bones appear intact, without suspicious lesions. Th ere is a round subcutaneous lesion consistent with a sebaceous cyst in the right parietal scalp or Sinuses: Visualized sinuses and mastoids are clear. IMPRESSION: 1. No acute intracranial abnormality. 2. Pqzw-mk-zfihqnhd chronic white matter small vessel ischemic changes and cerebral line loss. Old right thalamic lacunar infarct redemonstrated. Dictated by: Pascual Garcia M.D. on 08/29/2016 at 16:55 Approved by: Pascual Garcia M.D. on 08/29/2016 at 16:58
[2016-08-29 17:43] VITALS: BP 150/83; PULSE 71; RESP 18; O2SAT 96
--- NOTE | 2016-08-29 19:29 | NUR ---
Mentation, anxiety Patient mostly appropriate this shift, oriented to place and self. Family in room. Patient reports some anxiety at beginning of shift, resolved. Care is ongoing.
[2016-08-29 20:21] VITALS: BP 157/77; PULSE 78; RESP 20; O2SAT 99
--- NOTE | 2016-08-29 21:10 | PCM.PNMED ---
Subjective Date of Service Aug 29, 2016 Subjective Patient is seen and examined. Patient states that she fell down the stairs outside of her building at which point she went back in and then fell again in the bathroom. Upon calling [facility] staff did say that she was found on the floor in the bathroom shaking very fearful and appearing very confused and anxious. They say that these panic attack attacks are becoming more frequent in the recent past. Patient tells them that she falls but however they are not witnessed by them. Daughter, patient's boyfriend, patient's son and his are present in the room. Patient's daughter did most of the speaking and she says that mother has dementia and has seen PCP recently and citalopram, Ativan were introduced. They do not know yet if citalopram is helping. Ativan is being given more frequently now she seems to have 1 mg daily when necessary dose. Chloe's mother just sleeps after administering the Ativan but never acts confused or agitated. Last night she needed a sitter. No Haldol or Ativan were given last night. Currently she is conversing. She states that she becomes fearful of her children might get her because she lost them so much. She appears to be aware of her children's ages which is around 50 years but she continuously worries they might go have an accident on the road and this makes her have panic attacks. She states that when she fell she had a bump on the backside of her head up however on examination this turns out to be a sebaceous cyst. We discussed etiologies of confusion with the family such as infection, metabolic changes, less likely stroke. She does have a recent MRI in the system that shows concern for cerebellar cerebral vascular stenosis Exam Vital Signs Vital Sign - Last Date Time Temp Pulse Resp B/P Pulse Ox O2 Delivery O2 Flow Rate FiO2 08/29/16 20:21 35.6 78 20 157/77 99 Room Air Intake and Output 08/28/16 08/28/16 08/29/16 Cumulative From/Thru 15:00 23:00 07:00 08/28/16 15:15 - 08/29/16 05:04 Intake Total 1566 ml 1566 ml Output Total 600 ml 600 ml Balance 966 ml 966 ml Intake Oral 150 ml 150 ml IV Total 1416 ml 1416 ml Output Urine Total 600 ml 600 ml Exam Gen.: No acute distress laying in bed listening to conversation HEENT: Normocephalic, a sebaceous status cyst measuring 3 cm is present on the right parietal skull Heart: Regular rate and rhythm no S3 or S4 sounds Lungs clear to auscultation no crackles or wheezes Abdomen soft and nontender normal bowel sounds are present Neuro oriented to person but not to place or time. Negative Romberg's test, negative ranoaq-qs-kfjr was able to perform alternating hands C N 2-12 grossly normal Psych: No acute agitation IVs and Medications Medications Reviewed: Medications were reviewed in detail Lab and Diagnostics Result Diagram: 08/29/1645508/29/16455 X-Rays, CTs and MRIs [facility] Diagnostic Imaging [place] [address] PATIENT NAME: STEPH MEDINA MR#: [id number] [place] [facility] [place] Que Lbaoy MD DATE OF SERVICE: 03/19/16 1534 PROCEDURE: MRI STROKE PROTOCOL ([id number]) Pre- and post-contrast brain MRI, non-contrast brain MR angiogram, pre- and postcontrast neck MR angiogram INDICATIONS: syncope/dizziness TECHNIQUE: Brain: Noncontrast axial T1 spin echo, axial T2 fast spin echo, sagittal and axial FLAIR, coronal T2 fast spin echo, axial gradient echo, axial diffusion and ADC through the brain. After the administration of contrast, axial 3D VIBE of the cranial vasculature and brain. Brain MRA: Non-contrast 3-D time of flight MR angiogram, with multiple maximum- intensity-projection (MIP) reformats performed. Neck MRA: Axial and sagittal TruFISP through the neck. Coronal dynamic MR angiogram during administration of contrast in the arterial and venous phases, with 3-dimenstional fbhpzvb-bjrmsemcj-aaxbghpdfn (MIP) reformats constructed from subtraction images. COMPARISON: None. FINDINGS: Image quality: Excellent. BRAIN: CSF spaces: Ventricles are normal in shape. Atrophic changes present. Basal cisterns are patent. No extra-axial fluid collections. Brain: No intracranial bleeds or mass effects. Lao-white matter interface is normal. Diffusion weighted images show no acute ischemic insults. Brainstem appears normal. Normal intravascular flow voids are present. No abnormal intracranial enhancement. There is a small lacune in the right thalamus. 6 mm size. Skull and face: Calvarial marrow signal is normal. Orbits appear normal. In the right parietal scalp there is a 12 mm lesion. The sella is normal in appearance. Sinuses: Sinuses and mastoids are clear. BRAIN MR ANGIOGRAM: Anterior circulation: Intracranial internal carotid arteries are normal in size and enhancement. The flow within the paired anterior cerebral arteries is normal and symmetric. The flow within the middle cerebral arteries is normal and symmetric. The anterior communicating artery is seen. There is at least stenosis of the proximal to midportion of the A2 segment of the left anterior cerebral artery. Posterior circulation: The visualized portions of the vertebral arteries demonstrate normal caliber, and join to form a normal appearing basilar artery. The flow within the posterior cerebral arteries is normal and symmetric. There is stenosis of the right posterior cerebral artery 1.5 cm from the origin. NECK MR ANGIOGRAM: Carotids: Great vessels demonstrate a conventional anatomy as they arise from the aortic arch. The origins of the common carotid arteries appear patent. The calibers and courses of both common carotid arteries are normal. Shows minimal irregularity at the origin of the right internal carotid artery. There is likely a 50% diameter stenosis at the origin of the left internal carotid artery.. The internal carotid arteries demonstrate normal course and caliber to the skull base.. Posterior circulation: The origins of the vertebral arteries appear patent. There is significant stenosis likely greater than 50% in the origin on the right and at the origin of the left vertebral arteries. More superior portions of both vertebral arteries demonstrate normal course and caliber, and join to form a normal appearing basilar artery. Miscellaneous: Subclavian arteries appear patent. There is thought to be a significant stenosis at the origin of the right subclavian artery. Pre-contrast images through the neck show no soft tissue abnormalities. IMPRESSION: BRAIN MRI: 1. No evidence for stroke is seen. Atrophic changes present. Small old lacunar infarct in the right thalamus is present. BRAIN MR ANGIOGRAM: MR angiogram of the brain shows irregular vascular sewell consistent with atherosclerotic change. There is significant stenosis at least of the A2 portion of the left anterior cerebral artery and the right posterior cerebral artery. No aneurysms. NECK MR ANGIOGRAM: There is significant stenosis at the origin of the right subclavian artery and the origin of both vertebral arteries. There is likely greater than 50% diameter stenosis at the origin of the left internal carotid artery. The estimate of stenosis included in the report of the imaging study was calculated using the NASCET method Dictated by: José Miguel Molina M.D. on 03/19/2016 at 19:50 Approved by: José Miguel Molina M.D. on 03/19/2016 at 19:50 Assessment & Plan Acute diagnosis: 1 acute anxiety or panic attacks: We will hold Ativan for now will consider small doses for withdrawal if need be. Started her on BuSpar 7.5 mg by mouth twice a day this may also be due to advancement of her dementia. We will start her on 5 mg Namenda by mouth daily electrolytes magnesium and phosphorus are ordered and we will await urine cultures, continue ceftriaxone until the cultures return. Follow blood cultures. We have considered the possibility that she has carotid artery stenosis versus compromises cerebral vessels but family wants no heroic measures. She is a DO NOT RESUSCITATE per her daughter. We will order a CT scan to rule out acute bleeds or subdural hemorrhages or hematomas. We will consider when necessary Haldol by mouth -- Troponins of soap were negative. We will consider echocardiogram however less staff is available during the weekends #2 Alzheimer's: Namenda 5 mg by mouth daily as well #3 hypertension: Continue home medications Disposition: Patient may need stepup care. Will continue discussions with family [employer]: Intermittant Pneumatic CD Keyla Caballero DO Aug 29, 2016 21:09
--- NOTE | 2016-08-29 22:19 | NUR ---
Confusion Pt awoke confused and scared, pulling off telemetry leads and pulled out IV. Pt cleaned up, Tele leads placed back on and dressing applied to IV site. This RN attempted to start new IV once. Call to IV therapy by psychologist developmental, IV therapy no longer here. Call made to ED staff and requested they come assist with hard start IV. Pt still anxious, hx dementia, asking the same questions - "Is Santo here?" and "Where am I?" Pt reassured of her safety - light on, call light in reach. INSPECTOR RAG SORTING/Sitter remains outside of pt room. Care continues.
[2016-08-30] VITALS (8 sets, daily range): BP systolic 132–176; BP diastolic 72–96; PULSE 67–98; RESP 18–22; O2SAT 96–100
[2016-08-30 07:06] LABS: BASOPHILS % (AUTO) 0.5 % (0-3); EOSINOPHILS % (AUTO) 2.3 % (0-5); MONOCYTES % (AUTO) 8.3 % (4-12); Mean Corpuscular Hemoglobin 30.5 pg (27.0-35.0); Mean Corpuscular Volume 85.1 fL (81-100); NEUTROPHILS % (AUTO) 63.3 % (40-74); Platelet Count 381 bil/L (150-400)
[2016-08-30 08:09] LABS: Free Thyroxine Index 1.8 (1.2-4.9); Thyroxine (T4) 5.8 ug/dL (4.5-12.0)
[2016-08-30] MEDS: cefTRIAXone Inj 2,000 MG in Dextrose 5% Minibag Plus 50 ML IV SCH (08:38)
[2016-08-30] MEDS: Sodium Chloride LOK Flush 10 mL Syringe IVFLUSH SCH ×3 (08:38→20:13)
[2016-08-30] MEDS: BusPIRone 15 mg Dividose Tablet PO SCH ×2 (08:40→20:09)
--- NOTE | 2016-08-30 12:32 | NUR ---
Social Work: Continued Discharge Planning Data & Assessment: Machine Pie Maker spoke with Shasha at [phone], and Shasha stated that Bedside Assessments can not be done on the weekend. Shasha stated that she will notify the Coroner'S Juror Ginger that a bedside assessment is needed and that the patient's estimated DC date is 08/31/16. Plan: Patient will discharge to [facility] via POV. SW will continue to follow and assist with discharge planning. Leida Cody, DANA, ACDick
--- NOTE | 2016-08-30 14:21 | NUR ---
Evaluation completed. Please go to "Notes" then click on "Assessments and Notes" (bottom left corner of screen). Then select appropriate discipline tab on top of screen.
--- NOTE | 2016-08-30 15:01 | NUR ---
Behavior Pt was anxious at start of day shift today, but at morning medication pass she was cooperative and pleasant. Pt oriented to self but confused about place, situation, and time. Pt had several visitors today; she was smiling and pleasant. Noted increased restlessness at approximately 1300 hrs: pt became figidity, distracted, and started folding and unfolding her blankets. Pt remained calm with no complaints. Will continue observation of pt for increased agitation. One-on-one sitter with pt. Care continues.
--- NOTE | 2016-08-30 19:43 | PCM.PNMED ---
Subjective Date of Service Aug 30, 2016 Subjective Patient is seen and examined once again we discussed her medical management with the family and their questions were answered. She says that she did have urinary symptoms prior to arrival. She has staph growing in her urine culture currently on ceftriaxone. She does say she is feeling better now. She does not know why she gets anxious thinking about her children. Family say that an attempt was made made in the past for her to see a neurologist but patient declined medications. We discussed the usefulness of reordering the MRI and family did not express interest in obtaining an MRI at this time, however we will leave that option open for them. Her make medications were titrated yesterday. Exam Vital Signs Vital Sign - Last Date Time Temp Pulse Resp B/P Pulse Ox O2 Delivery O2 Flow Rate FiO2 08/30/16 05:58 67 08/30/16 05:19 36.4 22 176/84 100 Room Air Intake and Output 08/29/16 08/29/16 08/30/16 Cumulative From/Thru 15:00 23:00 07:00 08/28/16 15:15 - 08/30/16 05:19 Intake Total 240 ml 200 ml 2006 ml Output Total 600 ml 1400 ml 2600 ml Balance -360 ml -1200 ml -594 ml Intake Oral 240 ml 200 ml 590 ml IV Total 1416 ml Output Urine Total 600 ml 1400 ml 2600 ml # Voids 4 4 # Bowel Movements 0 0 Exam Gen.: No acute distress sitting up in bed talking with family HEENT normocephalic, atraumatic Heart: Regular rate and rhythm grade 1 + systolic murmur Lungs: Clear to auscultation no crackles or wheezes Abdomen: Nontender nondistended, soft, normal bowel sounds Extremities: Negative for edema 2+ dorsalis pedis pulse Psych: Negative for anxiety or agitation Neuro: Oriented to person IVs and Medications Medications Reviewed: Medications were reviewed in detail Lab and Diagnostics CBC Test 08/30/16 06:36 White Blood Count 9.8th/mm3 (3.8-10.1) Red Blood Count 4.63mil/mm3 (3.90-5.20) Hemoglobin 14.1g/dL (12.0-15.6) Hematocrit 39.4% (35.0-46.0) Mean Corpuscular Volume 85.1fL (81-100) Mean Corpuscular Hemoglobin 30.5pg (27.0-35.0) Mean Corpuscular Hemoglobin Concent 35.8% (32.0-37.0) Red Cell Distribution Width 13.9% (12.3-15.4) Platelet Count 381bil/L (150-400) Neutrophils (%) (Auto) 63.3% (40-74) Lymphocytes (%) (Auto) 24.9% (14-46) Monocytes (%) (Auto) 8.3% (4-12) Eosinophils (%) (Auto) 2.3% (0-5) Basophils (%) (Auto) 0.5% (0-3) CMP Test 08/28/16 15:49 08/29/16 04:56 08/29/16 13:15 08/30/16 06:36 Lactic Acid Level 1.5mmol/L Troponin T 0.010ug/L Free Thyroxine Index 1.8 Thyroxine (T4) 5.8ug/dL Triiodothyronine (T3) Uptake 31% Cortisol 14.8ug/dL Phosphorus Level 2.7mg/dL Magnesium Level 2.7mg/dL Sodium Level 134mEq/L Potassium Level 4.0mEq/L Chloride Level 98mEq/L Carbon Dioxide Level 19mmol/L Blood Urea Nitrogen 9mg/dL Creatinine 0.75mg/dL Estimat Glomerular Filtration Rate 106mL/min Glucose Level 138mg/dL Calcium Level 9.3mg/dL Total Bilirubin 0.6mg/dL Aspartate Amino Transf (AST/SGOT) 20U/L Alanine Aminotransferase (ALT/SGPT) 17U/L Alkaline Phosphatase 64U/L Total Protein 6.6g/dL Albumin 4.0g/dL Laboratory Tests Test 08/30/16 06:36 White Blood Count 9.8th/mm3 (3.8-10.1) Red Blood Count 4.63mil/mm3 (3.90-5.20) Hemoglobin 14.1g/dL (12.0-15.6) Hematocrit 39.4% (35.0-46.0) Mean Corpuscular Volume 85.1fL (81-100) Mean Corpuscular Hemoglobin 30.5pg (27.0-35.0) Mean Corpuscular Hemoglobin Concent 35.8% (32.0-37.0) Red Cell Distribution Width 13.9% (12.3-15.4) Platelet Count 381bil/L (150-400) Neutrophils (%) (Auto) 63.3% (40-74) Lymphocytes (%) (Auto) 24.9% (14-46) Monocytes (%) (Auto) 8.3% (4-12) Eosinophils (%) (Auto) 2.3% (0-5) Basophils (%) (Auto) 0.5% (0-3) Sodium Level 134mEq/L (134-144) Potassium Level 4.0mEq/L (3.5-5.2) Chloride Level 98mEq/L (97-108) Carbon Dioxide Level 19mmol/L (18-29) Blood Urea Nitrogen 9mg/dL (8-27) Creatinine 0.75mg/dL (0.57-1.00) Estimat Glomerular Filtration Rate 106mL/min (>59) Glucose Level 138mg/dL (60-99) Calcium Level 9.3mg/dL (8.5-10.1) Total Bilirubin 0.6mg/dL (0.0-1.2) Aspartate Amino Transf (AST/SGOT) 20U/L (0-50) Alanine Aminotransferase (ALT/SGPT) 17U/L (0-32) Alkaline Phosphatase 64U/L (25-165) Total Protein 6.6g/dL (6.4-8.4) Albumin 4.0g/dL (3.4-5.0) Microbiology 08/28/16 Blood Culture - Preliminary, Resulted No growth at 2 days; culture examined... 08/28/16 Urine Culture - Preliminary, Resulted Result Diagram: 08/29/16 0456 08/29/16 0456 X-Rays, CTs and MRIs [facility] Diagnostic Imaging Department [place], [place] [id number] PATIENT NAME: STEPH MEDINA MR#: [id number] LOCATION: [facility] [place] ORDERING PHYS: Que Laboy MD DATE OF SERVICE: 03/19/16 1534 PROCEDURE: MRI STROKE PROTOCOL ([id number]) Pre- and post-contrast brain MRI, non-contrast brain MR angiogram, pre- and postcontrast neck MR angiogram INDICATIONS: syncope/dizziness TECHNIQUE: Brain: Noncontrast axial T1 spin echo, axial T2 fast spin echo, sagittal and axial FLAIR, coronal T2 fast spin echo, axial gradient echo, axial diffusion and ADC through the brain. After the administration of contrast, axial 3D VIBE of the cranial vasculature and brain. Brain MRA: Non-contrast 3-D time of flight MR angiogram, with multiple maximum- intensity-projection (MIP) reformats performed. Neck MRA: Axial and sagittal TruFISP through the neck. Coronal dynamic MR angiogram during administration of contrast in the arterial and venous phases, with 3-dimenstional mchmrny-evdnyblvx-opuqjfalvk (MIP) reformats constructed from subtraction images. COMPARISON: None. FINDINGS: Image quality: Excellent. BRAIN: CSF spaces: Ventricles are normal in shape. Atrophic changes present. Basal cisterns are patent. No extra-axial fluid collections. Brain: No intracranial bleeds or mass effects. Lao-white matter interface is normal. Diffusion weighted images show no acute ischemic insults. Brainstem appears normal. Normal intravascular flow voids are present. No abnormal intracranial enhancement. There is a small lacune in the right thalamus. 6 mm size. Skull and face: Calvarial marrow signal is normal. Orbits appear normal. In the right parietal scalp there is a 12 mm lesion. The sella is normal in appearance. Sinuses: Sinuses and mastoids are clear. BRAIN MR ANGIOGRAM: Anterior circulation: Intracranial internal carotid arteries are normal in size and enhancement. The flow within the paired anterior cerebral arteries is normal and symmetric. The flow within the middle cerebral arteries is normal and symmetric. The anterior communicating artery is seen. There is at least stenosis of the proximal to midportion of the A2 segment of the left anterior cerebral artery. Posterior circulation: The visualized portions of the vertebral arteries demonstrate normal caliber, and join to form a normal appearing basilar artery. The flow within the posterior cerebral arteries is normal and symmetric. There is stenosis of the right posterior cerebral artery 1.5 cm from the origin. NECK MR ANGIOGRAM: Carotids: Great vessels demonstrate a conventional anatomy as they arise from the aortic arch. The origins of the common carotid arteries appear patent. The calibers and courses of both common carotid arteries are normal. Shows minimal irregularity at the origin of the right internal carotid artery. There is likely a 50% diameter stenosis at the origin of the left internal carotid artery.. The internal carotid arteries demonstrate normal course and caliber to the skull base.. Posterior circulation: The origins of the vertebral arteries appear patent. There is significant stenosis likely greater than 50% in the origin on the right and at the origin of the left vertebral arteries. More superior portions of both vertebral arteries demonstrate normal course and caliber, and join to form a normal appearing basilar artery. Miscellaneous: Subclavian arteries appear patent. There is thought to be a significant stenosis at the origin of the right subclavian artery. Pre-contrast images through the neck show no soft tissue abnormalities. IMPRESSION: BRAIN MRI: 1. No evidence for stroke is seen. Atrophic changes present. Small old lacunar infarct in the right thalamus is present. BRAIN MR ANGIOGRAM: MR angiogram of the brain shows irregular vascular sewell consistent with atherosclerotic change. There is significant stenosis at least of the A2 portion of the left anterior cerebral artery and the right posterior cerebral artery. No aneurysms. NECK MR ANGIOGRAM: There is significant stenosis at the origin of the right subclavian artery and the origin of both vertebral arteries. There is likely greater than 50% diameter stenosis at the origin of the left internal carotid artery. The estimate of stenosis included in the report of the imaging study was calculated using the NASCET method Dictated by: José Miguel Molina M.D. on 03/19/2016 at 19:50 Approved by: José Miguel Molina M.D. on 03/19/2016 at 19:50 [facility] Diagnostic Imaging Department [place], [place] [id number] Patient Name: STEPH MEDINA MR#: [id number] Location: [facility] [place] Ordering Phys: Keyla Caballero DO Date of Service: 08/29/16 1252 PROCEDURE: CT BRAIN WITHOUT CONTRAST ([id number]) INDICATIONS: fall, hit head TECHNIQUE: Noncontrast 4.5 mm thick angled axial sections acquired from the foramen magnum to the vertex, with coronal reformats. COMPARISON: [facility], CT, CT BRAIN WO CON, 03/19/2016, 9:56. FINDINGS: Image quality: Excellent. CSF spaces: Basal cisterns are patent. No extra-axial fluid collections. The ventricles are symmetric in size and shape. There is whzk-mu-mocecpyw cerebral volume loss, with resultant ventricular and sulcal prominence. Brain: No intracranial hemorrhage, mass, or mass effect. There are subcortical , periventricular and deep white matter hypodensities consistent with mild-to- moderate chronic small vessel ischemic changes. There is also a small hypodensity in the right thalamus compatible with a prior lacunar infarct, unchanged from the prior study. There is intracranial internal carotid artery atherosclerosis. Skull and face: Calvarium and visualized facial bones appear intact, without suspicious lesions. There is a round subcutaneous lesion consistent with a sebaceous cyst in the right parietal scalp or Sinuses: Visualized sinuses and mastoids are clear. IMPRESSION: 1. No acute intracranial abnormality. 2. Ehao-ks-tnumnwsa chronic white matter small vessel ischemic changes and cerebral line loss. Old right thalamic lacunar infarct redemonstrated. Dictated by: Pascual Garcia M.D. on 08/29/2016 at 16:55 Approved by: Pascual Garcia M.D. on 08/29/2016 at 16:58 Assessment & Plan Acute diagnosis: 1 acute anxiety or panic attacks: We will hold Ativan for now will consider small doses for withdrawal if need be. Started her on BuSpar 7.5 mg by mouth twice a day this may also be due to advancement of her dementia. We will start her on 5 mg Namenda by mouth daily electrolytes magnesium and phosphorus are ordered and we will await urine cultures, continue ceftriaxone until the cultures return. Follow blood cultures. We have considered the possibility that she has carotid artery stenosis versus compromises cerebral vessels but family wants no heroic measures. She is a DO NOT RESUSCITATE per her daughter. We will order a CT scan to rule out acute bleeds or subdural hemorrhages or hematomas. We will consider when necessary Haldol by mouth -- Troponins were negative. We will consider echocardiogram however less staff is available during the weekends -- Discussed the usefulness of ordering an MRI with the family there are substantial findings on the last MRI that was done last year however patient made a decision not to follow up with neurologist. It was informed to the patient's family that at this point the only reason to repeat the MRI would be to see if she had a stroke, and if the patient does not want further interventions are follow-up with neurologist, it may not be very useful except to get the more information. We will leave this up to the family. -- Blood cultures are negative to date, urine culture showed staph: Sensitivities are pending. Continue treating with ceftriaxone until sensitivities are back #2 Alzheimer's: Namenda 5 mg by mouth daily as well #3 hypertension: Started her on 12.5 hydrocodone thiazide #4 elevated blood glucose a.m. fasting: A1c is ordered Disposition: Patient may need stepup care. Will continue discussions with family VTE Prophylaxis: Sub-Q Heparin (Unfractionated) VTE Mechanical Devices: Intermittant Pneumatic CD Resuscitation Status: DNR/DNI:Do Not Resuscitate/Intubate Keyla Caballero DO Aug 30, 2016 06:20
[2016-08-30] MEDS: Heparin 5,000 Unit/mL Inj SUBQ SCH (20:13)
[2016-08-31] VITALS (8 sets, daily range): BP systolic 131–158; BP diastolic 74–80; PULSE 73–82; RESP 16–18; O2SAT 93–97
[2016-08-31] MEDS: Heparin 5,000 Unit/mL Inj SUBQ SCH ×3 (03:15→16:59)
--- NOTE | 2016-08-31 03:19 | NUR ---
behavior pt has been pleasant and cooperative with care this shift. she has been restless, has not slept, but has stayed up talking with the sitter and folding blankets and towels. she has been smiling, laughing and appears at ease with no signs of anxiety, other then the restlessness.
[2016-08-31] MEDS ORDERED: LORazepam 0.5 mg Tablet PO ONE (06:00)
[2016-08-31 07:31] LABS: BASOPHILS % (AUTO) 0.5 % (0-3); EOSINOPHILS % (AUTO) 2.9 % (0-5); MONOCYTES % (AUTO) 9.8 % (4-12); Mean Corpuscular Hemoglobin 30.3 pg (27.0-35.0); Mean Corpuscular Volume 85.9 fL (81-100); Platelet Count 388 bil/L (150-400)
--- NOTE | 2016-08-31 07:35 | NUR ---
panic attack starting around 5AM pt began to get agitated. she said she needed to leave and go home. she became increasingly panicked. they only think ordered was PRN oral haldol. she had not been given this med before so nurse contacted hospitalist to ask what he would like nurse to do. hospitalist ordered a one time dose of 0.5mg ativan. when nurse went to give the ativan to the patient she had calmed down and was laying in bed with her eyes closed. ativan was not given at this time.
[2016-08-31] MEDS: BusPIRone 15 mg Dividose Tablet PO SCH ×2 (08:10→20:30)
[2016-08-31] MEDS: Sodium Chloride LOK Flush 10 mL Syringe IVFLUSH SCH ×2 (08:15→16:59)
[2016-08-31] MEDS: cefTRIAXone Inj 2,000 MG in Dextrose 5% Minibag Plus 50 ML IV SCH (08:17)
--- NOTE | 2016-08-31 10:57 | NUR ---
Called and left message for Ginger at [facility] [phone], asked her for call back regarding coordination for patient and bedside assessment today. Updated SOFTWARE SALES MANAGER Addendum: 08/31/16 at 1413 by JONATAN AGUILAR CM Faxed clinicals to [facility] per [facility] [phone]
--- NOTE | 2016-08-31 11:21 | NUR ---
Behavior/Sleep Pt and family member reported pt didn't sleep all night. Due to impulsiveness oob, 1:1 sitter with pt. Pt A&Ox1 to self, easily reoriented when needed and cooperative with care and conversive with staff about her family members. One time dose PO Ativan withheld this AM as pt was easily reoriented and cooperative with care and let her needs be known. Family at the bedside this AM. Son concerned that pt didn't sleep all night, explained why medications were withheld due to possible discharge today and confusion that could be caused as a side affect. Pt offered warm blankets and pt sleeping at this time with family/boyfriend at bedside. Will continue to monitor with frequent rounds.
--- NOTE | 2016-08-31 15:45 | PCM.PNMED ---
Subjective Date of Service Aug 31, 2016 Subjective No complaints of chest pain, dyspnea, nausea or vomiting. She is sitting up eating breakfast does not really know where she is but feels all right. Exam Vital Signs Vital Sign - Last Date Time Temp Pulse Resp B/P Pulse Ox O2 Delivery O2 Flow Rate FiO2 08/31/16 14:58 Room Air 08/31/16 12:52 36.9 78 16 137/77 95 Intake and Output 08/30/16 08/30/16 08/31/16 Cumulative From/Thru 15:00 23:00 07:00 08/28/16 15:15 - 08/31/16 04:15 Intake Total 78 ml 996 ml 600 ml 3680 ml Output Total 330 ml 650 ml 3580 ml Balance 78 ml 666 ml -50 ml 100 ml Intake Oral 996 ml 600 ml 2186 ml IV Total 78 ml 1494 ml Output Urine Total 330 ml 650 ml 3580 ml # Voids 4 # Bowel Movements 0 Exam Gen.- A+ O 1 no apparent distress. Obese elderly female sitting up eating breakfast Eyes- open conjunctiva clear, pupils equal nonicteric, no drainage ENT- ears normal, nose normal Neck- supple/trach midline CVS- RRR no murmur or gallop Lungs- CTA GI- NABS/NT soft Musc- moving 4 no obvious deformity Neuro- cranial nerves II through XII intact to gross examination, nonfocal Skin- warm and dry, no rashes/lesions/wounds noted Psych- pleasant and appropriate, Lab and Diagnostics Result Diagram: 08/31/1671408/31/16714 X-Rays, CTs and MRIs [facility] Diagnostic [place] [address] PATIENT NAME: STEPH MEDINA MR#: [id number] LOCATION: [facility] [place] ORDERING PHYS: Que Laboy MD DATE OF SERVICE: 03/19/16 1534 PROCEDURE: MRI STROKE PROTOCOL ([id number]) Pre- and post-contrast brain MRI, non-contrast brain MR angiogram, pre- and postcontrast neck MR angiogram INDICATIONS: syncope/dizziness TECHNIQUE: Brain: Noncontrast axial T1 spin echo, axial T2 fast spin echo, sagittal and axial FLAIR, coronal T2 fast spin echo, axial gradient echo, axial diffusion and ADC through the brain. After the administration of contrast, axial 3D VIBE of the cranial vasculature and brain. Brain MRA: Non-contrast 3-D time of flight MR angiogram, with multiple maximum- intensity-projection (MIP) reformats performed. Neck MRA: Axial and sagittal TruFISP through the neck. Coronal dynamic MR angiogram during administration of contrast in the arterial and venous phases, with 3-dimenstional ndqbflz-ksolvzaeg-jtdlcagzjn (MIP) reformats constructed from subtraction images. COMPARISON: None. FINDINGS: Image quality: Excellent. BRAIN: CSF spaces: Ventricles are normal in shape. Atrophic changes present. Basal cisterns are patent. No extra-axial fluid collections. Brain: No intracranial bleeds or mass effects. Lao-white matter interface is normal. Diffusion weighted images show no acute ischemic insults. Brainstem appears normal. Normal intravascular flow voids are present. No abnormal intracranial enhancement. There is a small lacune in the right thalamus. 6 mm size. Skull and face: Calvarial marrow signal is normal. Orbits appear normal. In the right parietal scalp there is a 12 mm lesion. The sella is normal in appearance. Sinuses: Sinuses and mastoids are clear. BRAIN MR ANGIOGRAM: Anterior circulation: Intracranial internal carotid arteries are normal in size and enhancement. The flow within the paired anterior cerebral arteries is normal and symmetric. The flow within the middle cerebral arteries is normal and symmetric. The anterior communicating artery is seen. There is at least stenosis of the proximal to midportion of the A2 segment of the left anterior cerebral artery. Posterior circulation: The visualized portions of the vertebral arteries demonstrate normal caliber, and join to form a normal appearing basilar artery. The flow within the posterior cerebral arteries is normal and symmetric. There is stenosis of the right posterior cerebral artery 1.5 cm from the origin. NECK MR ANGIOGRAM: Carotids: Great vessels demonstrate a conventional anatomy as they arise from the aortic arch. The origins of the common carotid arteries appear patent. The calibers and courses of both common carotid arteries are normal. Shows minimal irregularity at the origin of the right internal carotid artery. There is likely a 50% diameter stenosis at the origin of the left internal carotid artery.. The internal carotid arteries demonstrate normal course and caliber to the skull base.. Posterior circulation: The origins of the vertebral arteries appear patent. There is significant stenosis likely greater than 50% in the origin on the right and at the origin of the left vertebral arteries. More superior portions of both vertebral arteries demonstrate normal course and caliber, and join to form a normal appearing basilar artery. Miscellaneous: Subclavian arteries appear patent. There is thought to be a significant stenosis at the origin of the right subclavian artery. Pre-contrast images through the neck show no soft tissue abnormalities. IMPRESSION: BRAIN MRI: 1. No evidence for stroke is seen. Atrophic changes present. Small old lacunar infarct in the right thalamus is present. BRAIN MR ANGIOGRAM: MR angiogram of the brain shows irregular vascular sewell consistent with atherosclerotic change. There is significant stenosis at least of the A2 portion of the left anterior cerebral artery and the right posterior cerebral artery. No aneurysms. NECK MR ANGIOGRAM: There is significant stenosis at the origin of the right subclavian artery and the origin of both vertebral arteries. There is likely greater than 50% diameter stenosis at the origin of the left internal carotid artery. The estimate of stenosis included in the report of the imaging study was calculated using the NASCET method Dictated by: José Miguel Molina M.D. on 03/19/2016 at 19:50 Approved by: José Miguel Molina M.D. on 03/19/2016 at 19:[address] [facility] Diagnostic [place] [address] Patient Name: STEPH MEDINA MR#: [id number] Location: [facility] [place] Ordering Phys: Keyla Caballero DO Date of Service: 08/29/16 1252 PROCEDURE: CT BRAIN WITHOUT CONTRAST ([id number]) INDICATIONS: fall, hit head TECHNIQUE: Noncontrast 4.5 mm thick angled axial sections acquired from the foramen magnum to the vertex, with coronal reformats. COMPARISON: [facility], CT, CT BRAIN WO CON, 03/19/2016, 9:56. FINDINGS: Image quality: Excellent. CSF spaces: Basal cisterns are patent. No extra-axial fluid collections. The ventricles are symmetric in size and shape. There is svqu-lc-zllkcfyg cerebral volume loss, with resultant ventricular and sulcal prominence. Brain: No intracranial hemorrhage, mass, or mass effect. There are subcortical , periventricular and deep white matter hypodensities consistent with mild-to- moderate chronic small vessel ischemic changes. There is also a small hypodensity in the right thalamus compatible with a prior lacunar infarct, unchanged from the prior study. There is intracranial internal carotid artery atherosclerosis. Skull and face: Calvarium and visualized facial bones appear intact, without suspicious lesions. There is a round subcutaneous lesion consistent with a sebaceous cyst in the right parietal scalp or Sinuses: Visualized sinuses and mastoids are clear. IMPRESSION: 1. No acute intracranial abnormality. 2. Doab-sd-gqqnjtfo chronic white matter small vessel ischemic changes and cerebral line loss. Old right thalamic lacunar infarct redemonstrated. Dictated by: Pascual Garcia M.D. on 08/29/2016 at 16:55 Approved by: Pascual Garcia M.D. on 08/29/2016 at 16:58 Assessment & Plan 81-year-old female admitted 08/28 week/confused 08/31 assessing patient for the first time. Stopping Rocephin do not seem indications/infection. Starting Seroquel when necessary for anxiety/insomnia stopping Haldol. Resuming Celexa as prior to admit, and starting ASA 81 mg daily #Metabolic encephalopathy/Alzheimer's dementia- -pleasant has not needed Haldol would utilize Seroquel when necessary as needed -Patient has had a sitter probably cannot return to independent living probably needs Alzheimer's unit at [place] #Hyperglycemia-blood sugars 130s with morning labs. -HG A1c pending #HTN -Controlled adequately with HCTZ patient was on lisinopril/indapamide prior to admit according to the medication reconciliation. #Anxiety-when necessary Seroquel, . Avoid benzodiazepines in patient with dementia. -Patient was on citalopram prior to admission this will be resumed. #Weakness-patient can apparently ambulate 120 feet and is acceptable for [facility] or she can go with home health PT #Hx CVA-at least low-dose aspirin for prophylaxis in patient with history of CVA as noted on CT head. DO NOT RESUSCITATE per her daughter. Disposal to Alzheimer's unit at [place] she was in independent living at do not think she suitable VTE Prophylaxis: Sub-Q Heparin (Unfractionated) VTE Mechanical Devices: Intermittant Pneumatic CD Resuscitation Status: DNR/DNI:Do Not Resuscitate/Intubate Ralf Rausch MD Aug 31, 2016 15:45
--- NOTE | 2016-08-31 16:11 | NUR ---
Social Work Note - Continued Discharge Planning: D/A: SW informed by Nursing that family would like to meet with SW. SW met with the Pt, son, and other family members. SW discussed PT discharge recommendations of returning to [facility] with HH vs returning to [facility] under their memory care program. SW informed family that the Pts clinicals have been faxed to [facility] to complete bedside assessment tomorrow morning. Family informed. SW will continue to follow. P: Pt is not ready for discharge at this time. PT eval completed, recommending return to [facility] with HH vs [facility]. SW waiting for return call regarding bedside assessment availability. SW will continue to follow. Bhumika Saldana MSW Senior Marketing Manager UZIEL Lorenzo
[2016-08-31] MEDS ORDERED: LORazepam 0.5 mg Tablet ONE (17:41)
--- NOTE | 2016-08-31 18:15 | NUR ---
Agitated/Ativan Pt became agitated around dinner time this evening; boyfriend and family at bedside with patient. One time dose of PO 0.5mg Ativan given. Per family at bedside, "medication did not help at all." Will continue to monitor with frequent rounds.
--- NOTE | 2016-08-31 23:06 | NUR ---
medications withheld pt bedtime medications were held this evening. pt fell asleep around 1999 and has been sleeping heavily since. she opens her eyes to stimuli and answers questions but immediately falls asleep afterwards. she would not follow directions to swallow water so it appeared unsafe to try and give her medications. pt's drowsiness may be from receiving her first dose of PRN seroquel at 1800. However she has also not slept for the last 2 nights. family expresses relief that she is getting to sleep now. VSS. no signs of distress. will continue to monitor.
[2016-09-01] MEDS: Heparin 5,000 Unit/mL Inj SUBQ SCH ×4 (00:30→16:30)
[2016-09-01] MEDS: Sodium Chloride LOK Flush 10 mL Syringe IVFLUSH SCH ×4 (00:30→09:29)
[2016-09-01 05:30] VITALS: BP 144/85; PULSE 69; RESP 16; O2SAT 98
--- NOTE | 2016-09-01 05:44 | NUR ---
activity pt slept clear through the night. she awoke easily to voice this morning but still drowsy difficult to keep awake. she had not voided all night so nurse and HORSE BREEDER helped pt up to the BSC this morning. she was still tired so she was a heavy two person assist but she did stand and pivot. pt was helped back into bed and went immediately back to sleep. VSS. will continue to monitor.
[2016-09-01] MEDS: BusPIRone 15 mg Dividose Tablet PO SCH ×2 (08:30→22:39)
[2016-09-01 09:11] VITALS: BP 130/82; PULSE 65; RESP 14; O2SAT 92
--- NOTE | 2016-09-01 09:29 | PCM.PNMED ---
Subjective Date of Service Sep 01, 2016 Subjective no c/o diarrhea, n/v, no CP, no dyspnea Exam Vital Signs Vital Sign - Last Date Time Temp Pulse Resp B/P Pulse Ox O2 Delivery O2 Flow Rate FiO2 09/01/16 05:30 36.6 69 16 144/85 98 Room Air Intake and Output 08/31/16 08/31/16 09/01/16 Cumulative From/Thru 15:00 23:00 07:00 08/28/16 15:15 - 09/01/16 06:36 Intake Total 310 ml 50 ml 4040 ml Output Total 500 ml 4080 ml Balance 310 ml -450 ml -40 ml Intake Oral 240 ml 50 ml 2476 ml IV Total 70 ml 1564 ml Output Urine Total 500 ml 4080 ml # Voids 3 7 # Bowel Movements 0 0 Exam Gen.- sleeping, no apparent distress. Obese elderly female Eyes- open conjunctiva clear, pupils equal nonicteric, no drainage ENT- ears normal, nose normal Neck- supple/trach midline CVS- normal rate Lungs- normal rate, no accessory muscles patient was snoring initially GI- generous pannus Musc- moving 4 no obvious deformity Neuro- cranial nerves II through XII intact to gross examination, nonfocal Skin- warm and dry, no rashes/lesions/wounds noted Psych-sleeping Lab and Diagnostics Result Diagram: 08/31/16 0715 08/31/16 07 X-Rays, CTs and MRIs [facility] Diagnostic [place] [address] PATIENT NAME: STEPH MEDINA MR#: [id number] LOCATION: [facility] ORDERING PHYS: Que Laboy MD DATE OF SERVICE: 03/19/16 1534 PROCEDURE: MRI STROKE PROTOCOL ([id number]) Pre- and post-contrast brain MRI, non-contrast brain MR angiogram, pre- and postcontrast neck MR angiogram INDICATIONS: syncope/dizziness TECHNIQUE: Brain: Noncontrast axial T1 spin echo, axial T2 fast spin echo, sagittal and axial FLAIR, coronal T2 fast spin echo, axial gradient echo, axial diffusion and ADC through the brain. After the administration of contrast, axial 3D VIBE of the cranial vasculature and brain. Brain MRA: Non-contrast 3-D time of flight MR angiogram, with multiple maximum- intensity-projection (MIP) reformats performed. Neck MRA: Axial and sagittal TruFISP through the neck. Coronal dynamic MR angiogram during administration of contrast in the arterial and venous phases, with 3-dimenstional hekfyme-ptgifkcbw-htszreqken (MIP) reformats constructed from subtraction images. COMPARISON: None. FINDINGS: Image quality: Excellent. BRAIN: CSF spaces: Ventricles are normal in shape. Atrophic changes present. Basal cisterns are patent. No extra-axial fluid collections. Brain: No intracranial bleeds or mass effects. Lao-white matter interface is normal. Diffusion weighted images show no acute ischemic insults. Brainstem appears normal. Normal intravascular flow voids are present. No abnormal intracranial enhancement. There is a small lacune in the right thalamus. 6 mm size. Skull and face: Calvarial marrow signal is normal. Orbits appear normal. In the right parietal scalp there is a 12 mm lesion. The sella is normal in appearance. Sinuses: Sinuses and mastoids are clear. BRAIN MR ANGIOGRAM: Anterior circulation: Intracranial internal carotid arteries are normal in size and enhancement. The flow within the paired anterior cerebral arteries is normal and symmetric. The flow within the middle cerebral arteries is normal and symmetric. The anterior communicating artery is seen. There is at least stenosis of the proximal to midportion of the A2 segment of the left anterior cerebral artery. Posterior circulation: The visualized portions of the vertebral arteries demonstrate normal caliber, and join to form a normal appearing basilar artery. The flow within the posterior cerebral arteries is normal and symmetric. There is stenosis of the right posterior cerebral artery 1.5 cm from the origin. NECK MR ANGIOGRAM: Carotids: Great vessels demonstrate a conventional anatomy as they arise from the aortic arch. The origins of the common carotid arteries appear patent. The calibers and courses of both common carotid arteries are normal. Shows minimal irregularity at the origin of the right internal carotid artery. There is likely a 50% diameter stenosis at the origin of the left internal carotid artery.. The internal carotid arteries demonstrate normal course and caliber to the skull base.. Posterior circulation: The origins of the vertebral arteries appear patent. There is significant stenosis likely greater than 50% in the origin on the right and at the origin of the left vertebral arteries. More superior portions of both vertebral arteries demonstrate normal course and caliber, and join to form a normal appearing basilar artery. Miscellaneous: Subclavian arteries appear patent. There is thought to be a significant stenosis at the origin of the right subclavian artery. Pre-contrast images through the neck show no soft tissue abnormalities. IMPRESSION: BRAIN MRI: 1. No evidence for stroke is seen. Atrophic changes present. Small old lacunar infarct in the right thalamus is present. BRAIN MR ANGIOGRAM: MR angiogram of the brain shows irregular vascular sewell consistent with atherosclerotic change. There is significant stenosis at least of the A2 portion of the left anterior cerebral artery and the right posterior cerebral artery. No aneurysms. NECK MR ANGIOGRAM: There is significant stenosis at the origin of the right subclavian artery and the origin of both vertebral arteries. There is likely greater than 50% diameter stenosis at the origin of the left internal carotid artery. The estimate of stenosis included in the report of the imaging study was calculated using the NASCET method Dictated by: José Miguel Molina M.D. on 03/19/2016 at 19:50 Approved by: José Miguel Molina M.D. on 03/19/2016 at 19:50 [facility] Diagnostic [place] [address] Patient Name: STEPH MEDINA MR#: [id number] Location: [facility] Ordering Phys: Keyla Caballero DO Date of Service: 08/29/16 1252 PROCEDURE: CT BRAIN WITHOUT CONTRAST ([id number]) INDICATIONS: fall, hit head TECHNIQUE: Noncontrast 4.5 mm thick angled axial sections acquired from the foramen magnum to the vertex, with coronal reformats. COMPARISON: [facility], CT, CT BRAIN WO CON, 03/19/2016, 9:56. FINDINGS: Image quality: Excellent. CSF spaces: Basal cisterns are patent. No extra-axial fluid collections. The ventricles are symmetric in size and shape. There is akld-ao-qapddwiz cerebral volume loss, with resultant ventricular and sulcal prominence. Brain: No intracranial hemorrhage, mass, or mass effect. There are subcortical , periventricular and deep white matter hypodensities consistent with mild-to- moderate chronic small vessel ischemic changes. There is also a small hypodensity in the right thalamus compatible with a prior lacunar infarct, unchanged from the prior study. There is intracranial internal carotid artery atherosclerosis. Skull and face: Calvarium and visualized facial bones appear intact, without suspicious lesions. There is a round subcutaneous lesion consistent with a sebaceous cyst in the right parietal scalp or Sinuses: Visualized sinuses and mastoids are clear. IMPRESSION: 1. No acute intracranial abnormality. 2. Xmkf-fo-skxpgkon chronic white matter small vessel ischemic changes and cerebral line loss. Old right thalamic lacunar infarct redemonstrated. Dictated by: Pascual Garcia M.D. on 08/29/2016 at 16:55 Approved by: Pascual Garcia M.D. on 08/29/2016 at 16:58 Assessment & Plan 81-year-old female admitted 08/28 week/confused 08/31 assessing patient for the first time. Stopping Rocephin do not seem indications/infection. Starting Seroquel when necessary for anxiety/insomnia stopping Haldol. Resuming Celexa as prior to admit, and starting ASA 81 mg daily 09/01 b Spoke to son @ bedside he desires mother to return to [place] and not go to SNF. Finish course abx for UTI, Keflex 4 more days+lactobacillus, start metronidazole for C diff. Slept after suyndowning, got quetiapine, slept all night, had sitter. #C diff- flagyl 09/01-09/11 (10days), no BMs charted since admit, certainly not having diarrhea #UTI- error re review ua 08/28 (+)bacteria/packed WBCs, S Aureus not just colonized. Complete course w/ keflex 7 days total 09/01-09/04, start lactobacillus prophylaxis #Metabolic encephalopathy/Alzheimer's dementia- -pleasant has not needed Haldol would utilize Seroquel when necessary as needed -Patient has had a sitter probably cannot return to independent living probably needs Alzheimer's unit at [place] #Hyperglycemia-blood sugars 130s with morning labs. -HG A1c pending #HTN -Controlled adequately with HCTZ patient was on lisinopril/indapamide prior to admit according to the medication reconciliation. #Anxiety-when necessary Seroquel, . Avoid benzodiazepines in patient with dementia. -Patient was on citalopram prior to admission this will be resumed. #Weakness-patient can apparently ambulate 120 feet and is acceptable for [place] w/ home health PT #Hx CVA-at least low-dose aspirin for prophylaxis in patient with history of CVA as noted on CT head. DO NOT RESUSCITATE per her daughter. Dispo- to Alzheimer's unit at [place] she was in independent living at do not think she suitable VTE Prophylaxis: Sub-Q Heparin (Unfractionated) VTE Mechanical Devices: Intermittant Pneumatic CD Resuscitation Status: DNR/DNI:Do Not Resuscitate/Intubate Ralf Rausch MD Sep 01, 2016 09:14
[2016-09-01 10:23] VITALS: PULSE 64
--- NOTE | 2016-09-01 11:16 | NUR ---
SEDATION/C-DIFF P- Patient sedated (08/03 Quetiapine 12.5mg @ 1820 and Lorazepam 0.5mg @ 1744) and not safe to take PO medications. I- MD made aware, withheld all PO medications. E- Continue to monitor sedation and resume PO medications when safe. P- Patient positive for C-Diff on stool PCR. I- Enteric precaution started, MD made aware. E- Will start new antibiotics order when patient able to swallow.
--- NOTE | 2016-09-01 14:19 | NUR ---
Social Work Note - Readiness for Discharge Data: EMR reviewed. Pt is on day 4 of hospitalization for UTI, confusion per H&P. Pt is CDiff positive. Pt has a sitter at this time. [facility] completed bedside assessment this morning. AMY spoke with [facility], [facility] [phone], who informed SW that pt cannot be discharged to [facility] with a sitter, as well as needs to begin PO cdiff abx. Pt's PO meds are currently being held as pt is sedated. [facility] requested SW call tomorrow to request another bedside assessment. 08/31 PT recommends pt to discharge with PT. SW called Fidel Jerry, pts son [phone], regarding recommendations. HH choice list provided over the phone. Son does not have a preference for company. AMY referred to rotating calendar, made referral to [facility] for RN PT. F2[facility] in folder. Pts son agreeable to discharge plan. SW will continue to follow. Assessment: Pt who may benefit from [facility] RN PT and will return to [facility] at discharge. P: Pt is not ready for discharge at this time. PT eval completed, recommending return to [facility] with HH vs [facility] with . AMY made referral to [facility] RN PT. F2F in folder. Pt to discharge to [facility] when medically stable. SW will continue to follow. UZIEL Newton
[2016-09-01 16:53] VITALS: BP 155/77; PULSE 64; RESP 18; O2SAT 97
[2016-09-01 21:10] VITALS: BP 125/63; PULSE 72; RESP 16; O2SAT 100
[2016-09-02] MEDS: Heparin 5,000 Unit/mL Inj SUBQ SCH ×3 (00:33→17:44)
[2016-09-02] MEDS: Sodium Chloride LOK Flush 10 mL Syringe IVFLUSH SCH ×3 (00:34→17:44)
--- NOTE | 2016-09-02 04:48 | NUR ---
Sitter Patient has had a sitter this shift. Patient weak getting up to bedside comode. Patient has had multiple episodes of diarrhea this shift. Patient taking oral medications well.
[2016-09-02 05:32] VITALS: BP 134/68; PULSE 69; RESP 20; O2SAT 93
--- NOTE | 2016-09-02 10:00 | NUR ---
STUART signed. UZIEL Lorenzo
[2016-09-02] MEDS: BusPIRone 15 mg Dividose Tablet PO SCH ×2 (10:53→21:16)
--- NOTE | 2016-09-02 12:19 | PCM.PNMED ---
Subjective Date of Service Sep 02, 2016 Subjective Patient complaining of abdominal pain, no dyspnea nausea or vomiting. She is much more awake than yesterday. Exam Vital Signs Vital Sign - Last Date Time Temp Pulse Resp B/P Pulse Ox O2 Delivery O2 Flow Rate FiO2 09/02/16 05:32 36.1 69 20 134/68 93 Room Air Intake and Output 09/01/16 09/01/16 09/02/16 Cumulative From/Thru 15:00 23:00 07:00 08/28/16 15:15 - 09/02/16 05:31 Intake Total 100 ml 4140 ml Output Total 100 ml 4180 ml Balance 0 ml -40 ml Intake Oral 100 ml 2576 ml IV Total 1564 ml Output Urine Total 100 ml 4180 ml # Voids 7 # Bowel Movements 0 Exam Gen.-Obese Elderly female lying in bed eyes half open, possible mild distress. Eyes- eyelids normal, no drainage ENT- ears normal, nose normal Neck- supple/trach midline CVS- normal rate Lungs- normal rate, no accessory muscles patient was snoring initially GI- generous pannus Musc- moving 4 no obvious deformity Neuro- cranial nerves II through XII intact to gross examination, nonfocal Skin- warm and dry, no rashes/lesions/wounds noted Psych-somnolent but wakes up and speaks much more so awake then yesterday. Still very confused. Lab and Diagnostics Result Diagram: 08/31/1615 08/31/16714 X-Rays, CTs and MRIs [facility] Diagnostic Imaging Department [place], [place] [id number] PATIENT NAME: STEPH MEDINA MR#: [id number] LOCATION: [facility] ORDERING PHYS: Que Laboy MD DATE OF SERVICE: 03/19/16 1534 PROCEDURE: MRI STROKE PROTOCOL ([id number]) Pre- and post-contrast brain MRI, non-contrast brain MR angiogram, pre- and postcontrast neck MR angiogram INDICATIONS: syncope/dizziness TECHNIQUE: Brain: Noncontrast axial T1 spin echo, axial T2 fast spin echo, sagittal and axial FLAIR, coronal T2 fast spin echo, axial gradient echo, axial diffusion and ADC through the brain. After the administration of contrast, axial 3D VIBE of the cranial vasculature and brain. Brain MRA: Non-contrast 3-D time of flight MR angiogram, with multiple maximum- intensity-projection (MIP) reformats performed. Neck MRA: Axial and sagittal TruFISP through the neck. Coronal dynamic MR angiogram during administration of contrast in the arterial and venous phases, with 3-dimenstional mhfsfdn-vwczgdigy-jbazhkuexr (MIP) reformats constructed from subtraction images. COMPARISON: None. FINDINGS: Image quality: Excellent. BRAIN: CSF spaces: Ventricles are normal in shape. Atrophic changes present. Basal cisterns are patent. No extra-axial fluid collections. Brain: No intracranial bleeds or mass effects. Lao-white matter interface is normal. Diffusion weighted images show no acute ischemic insults. Brainstem appears normal. Normal intravascular flow voids are present. No abnormal intracranial enhancement. There is a small lacune in the right thalamus. 6 mm size. Skull and face: Calvarial marrow signal is normal. Orbits appear normal. In the right parietal scalp there is a 12 mm lesion. The sella is normal in appearance. Sinuses: Sinuses and mastoids are clear. BRAIN MR ANGIOGRAM: Anterior circulation: Intracranial internal carotid arteries are normal in size and enhancement. The flow within the paired anterior cerebral arteries is normal and symmetric. The flow within the middle cerebral arteries is normal and symmetric. The anterior communicating artery is seen. There is at least stenosis of the proximal to midportion of the A2 segment of the left anterior cerebral artery. Posterior circulation: The visualized portions of the vertebral arteries demonstrate normal caliber, and join to form a normal appearing basilar artery. The flow within the posterior cerebral arteries is normal and symmetric. There is stenosis of the right posterior cerebral artery 1.5 cm from the origin. NECK MR ANGIOGRAM: Carotids: Great vessels demonstrate a conventional anatomy as they arise from the aortic arch. The origins of the common carotid arteries appear patent. The calibers and courses of both common carotid arteries are normal. Shows minimal irregularity at the origin of the right internal carotid artery. There is likely a 50% diameter stenosis at the origin of the left internal carotid artery.. The internal carotid arteries demonstrate normal course and caliber to the skull base.. Posterior circulation: The origins of the vertebral arteries appear patent. There is significant stenosis likely greater than 50% in the origin on the right and at the origin of the left vertebral arteries. More superior portions of both vertebral arteries demonstrate normal course and caliber, and join to form a normal appearing basilar artery. Miscellaneous: Subclavian arteries appear patent. There is thought to be a significant stenosis at the origin of the right subclavian artery. Pre-contrast images through the neck show no soft tissue abnormalities. IMPRESSION: BRAIN MRI: 1. No evidence for stroke is seen. Atrophic changes present. Small old lacunar infarct in the right thalamus is present. BRAIN MR ANGIOGRAM: MR angiogram of the brain shows irregular vascular sewell consistent with atherosclerotic change. There is significant stenosis at least of the A2 portion of the left anterior cerebral artery and the right posterior cerebral artery. No aneurysms. NECK MR ANGIOGRAM: There is significant stenosis at the origin of the right subclavian artery and the origin of both vertebral arteries. There is likely greater than 50% diameter stenosis at the origin of the left internal carotid artery. The estimate of stenosis included in the report of the imaging study was calculated using the NASCET method Dictated by: José Miguel Molina M.D. on 03/19/2016 at 19:50 Approved by: José Miguel Molina M.D. on 03/19/2016 at 19:50 [facility] Diagnostic [place] [address] Patient Name: STEPH MEDINA MR#: [id number] Location: [facility] Ordering Phys: Keyla Caballero DO Date of Service: 08/29/16 1252 PROCEDURE: CT BRAIN WITHOUT CONTRAST ([id number]) INDICATIONS: fall, hit head TECHNIQUE: Noncontrast 4.5 mm thick angled axial sections acquired from the foramen magnum to the vertex, with coronal reformats. COMPARISON: [facility], CT, CT BRAIN WO CON, 03/19/2016, 9:56. FINDINGS: Image quality: Excellent. CSF spaces: Basal cisterns are patent. No extra-axial fluid collections. The ventricles are symmetric in size and shape. There is yfem-rh-rhbcwcyl cerebral volume loss, with resultant ventricular and sulcal prominence. Brain: No intracranial hemorrhage, mass, or mass effect. There are subcortical , periventricular and deep white matter hypodensities consistent with mild-to- moderate chronic small vessel ischemic changes. There is also a small hypodensity in the right thalamus compatible with a prior lacunar infarct, unchanged from the prior study. There is intracranial internal carotid artery atherosclerosis. Skull and face: Calvarium and visualized facial bones appear intact, without suspicious lesions. There is a round subcutaneous lesion consistent with a sebaceous cyst in the right parietal scalp or Sinuses: Visualized sinuses and mastoids are clear. IMPRESSION: 1. No acute intracranial abnormality. 2. Ywre-uc-ffivuomi chronic white matter small vessel ischemic changes and cerebral line loss. Old right thalamic lacunar infarct redemonstrated. Dictated by: Pascual Garcia M.D. on 08/29/2016 at 16:55 Approved by: Pascual Garcia M.D. on 08/29/2016 at 16:58 Assessment & Plan 81-year-old female admitted 08/28 week/confused 08/31 assessing patient for the first time. Stopping Rocephin do not seem indications/infection. Starting Seroquel when necessary for anxiety/insomnia stopping Haldol. Resuming Celexa as prior to admit, and starting ASA 81 mg daily 09/01 b Spoke to son @ bedside he desires mother to return to [place] and not go to SNF. Finish course abx for UTI, Keflex 4 more days+lactobacillus, start metronidazole for C diff. Slept after suyndowning, got quetiapine, slept all night, had sitter. 09/02 slept all day, waking up having diarrhea, changing to vancomycin today, reevaluating lab work today. #C diff- changing to vancomycin 09/02-09/11 10 days - BM 08/29 + 08/31 (1 BM in house to that pt) -flagyl 09/01-09/02, started having diarrhea overnight , #UTI- ua 08/28 (+)bacteria/packed WBCs, S Aureus not just colonized. Complete course w/ keflex 7 days total 09/01-09/04, start lactobacillus prophylaxis #Metabolic encephalopathy/Alzheimer's dementia- -utilize Seroquel prn last dose 08/31 1845 -Patient has had a sitter probably cannot return to independent living probably needs Alzheimer's unit at [place] #new Dx DM, Hyperglycemia-blood sugars 130s with morning labs. -HG A1c 7.5 08/30 #HTN -Controlled adequately with HCTZ patient was on lisinopril/indapamide prior to admit according to the medication reconciliation. #Anxiety-when necessary Seroquel, . Avoid benzodiazepines in patient with dementia. -Patient was on citalopram prior to admission this will be resumed. #Weakness-patient can apparently ambulate 120 feet and is acceptable for [place] w/ home health PT #Hx CVA- -CT head + -low dose ASA 09/01. DO NOT RESUSCITATE per her daughter. Dispo- to Alzheimer's unit at [place] she was in independent living at do not think she suitable VTE Prophylaxis: Sub-Q Heparin (Unfractionated) VTE Mechanical Devices: Intermittant Pneumatic CD Resuscitation Status: DNR/DNI:Do Not Resuscitate/Intubate Ralf Rausch MD Sep 02, 2016 12:19
[2016-09-02 12:26] VITALS: BP 133/72; PULSE 93; RESP 18; O2SAT 94
[2016-09-02 13:01] LABS: BASOPHILS % (AUTO) 0.7 % (0-3); EOSINOPHILS % (AUTO) 4.1 % (0-5); MONOCYTES % (AUTO) 9.9 % (4-12); Mean Corpuscular Volume 86.9 fL (81-100); NEUTROPHILS % (AUTO) 58.1 % (40-74); Platelet Count 393 bil/L (150-400)
--- NOTE | 2016-09-02 13:21 | NUR ---
Social Work-readiness for discharge: Data:EMR reviewed. Pt is on day 5 of hospitalization for UTI and confusion per H&P. Pt is not medically stable anticipate 2-3more days. PT continues to recommend back to [facility] with HH. AMY met with pt's daughter Nena [phone] to discuss discharge planning,SW role explained. Daughter just flew into town and will be here for a while to assist with discharge process. Daughter states they are wanting pt to return to [facility], but unclear if pt will be able to return to assisted living or will need memory care. SW encouraged daughter to speak with [facility] about this and explained that [facility] will need to come in again prior to discharge to complete re-assessment. SW to coordinate this closer to discharge. SW explained referral has been made to [facility] for RN and PT, SW had discussed with son Fidel, SW also provided information to daughter. Daughter wondering about hiring assistance back at [facility]. SW provided daughter with senior resources guidebook and daughter will call agencies. F2F in folder. SW will continue to follow. Assessment:Pt would be benefit from return to [facility]. Plan:Pt to likely discharge back to [facility] when medically stable. SW to call [facility] closer to discharge for reassessment. Daughter working on hiring extra help. Referral made to [facility] For RN and PT. F2F in folder. SW will continue to follow. UZIEL Lorenzo
[2016-09-02 13:26] LABS: Magnesium 2.2 mg/dL (1.6-2.6)
[2016-09-02] MEDS: Vancomycin 125 mg Oral Capsule PO SCH ×2 (14:44→21:17)
--- NOTE | 2016-09-02 14:57 | NUR ---
NUTRITION FOLLOW-UP: ASSESS: 81 YO female admitted with UTI, confusion, weakness after series of panic attacks at her assisted living facility. Pt has been experiencing some diarrhea and abdominal pain. She is C.Diff +. PO intake has been variable at 0-100% of General diet. PO avg is 30% x5 days. PMHx: HTN, dyslipidemia, Alzheimer's dementia, anxiety, panic attacks, ETOH, abdominal mass, recurrent UTI's. DIET: General, PO 0-100% LABS: Na 132, Cl 95, Glu 141, A1C 7.5 MEDICATIONS: Reviewed. GI symptoms / stool: C. Diff + Skin Integrity: No issues reported. ANTHROPOMETRICS: Current Wt: 76.9kg BMI: 31.0 kg/m2, admit wt 77.3kg IBW: 50 kg ESTIMATED NEEDS: BMI Calories: 1540-1695kcal/day (20-22kcal/kg) Protein: 60-75g/day (1.2-1.5g.kg IBW) NUTRITION DIAGNOSIS: 1) Inadequate oral intake related to confusion and GI pain as evidence by variable PO intake at 0-100% and pt complaining of abdominal pain INTERVENTION: 1) Will add Ensure on L tray to help supplement PO intake MONITOR/EVALUATE:Diet tolerance, PO intake, labs, GI/nutrition status. Follow up per moderate nutrition risk guidelines.
[2016-09-02 21:14] VITALS: BP 105/71; PULSE 81; RESP 16; O2SAT 94
[2016-09-03] MEDS: Heparin 5,000 Unit/mL Inj SUBQ SCH ×3 (00:33→16:30)
[2016-09-03] MEDS: Sodium Chloride LOK Flush 10 mL Syringe IVFLUSH SCH ×3 (00:33→17:10)
[2016-09-03] MEDS: Vancomycin 125 mg Oral Capsule PO SCH ×4 (02:07→21:10)
--- NOTE | 2016-09-03 03:39 | NUR ---
No BM/Sleep/Ambulation Pt. has had no BMs or diarrhea this shift. Pt. has been up frequently throughout the night, and was having a hard time sleeping. This RN asked how the staff could make her more comfortable. Pt. denied any need, just couldn't sleep. Pt. was weak earlier in shift, when ambulating from bed to toilet. However, pt. has become less weak and has experienced more mobility as the shift has gone on. Will continue to monitor.
[2016-09-03 06:08] VITALS: BP 107/69; PULSE 62; RESP 17; O2SAT 93
[2016-09-03] MEDS: BusPIRone 15 mg Dividose Tablet PO SCH ×2 (09:13→21:08)
--- NOTE | 2016-09-03 11:41 | NUR ---
Faxed updated clinicals to [place] Attn: Donnell TRIPLETT
--- NOTE | 2016-09-03 12:07 | PCM.PNMED ---
Subjective Date of Service Sep 03, 2016 Subjective Patient awake today, without complaints of chest pain, dyspnea, nausea or vomiting. States she feels alright if she is ambulating to the bathroom. Exam Vital Signs Vital Sign - Last Date Time Temp Pulse Resp B/P Pulse Ox O2 Delivery O2 Flow Rate FiO2 09/03/16 10:15 Room Air 09/03/16 06:08 36.4 62 17 107/69 93 Intake and Output 09/02/16 09/02/16 09/03/16 Cumulative From/Thru 15:00 23:00 07:00 08/28/16 15:15 - 09/03/16 06:08 Intake Total 50 ml 900 ml 400 ml 5490 ml Output Total 100 ml 950 ml 500 ml 5730 ml Balance -50 ml -50 ml -100 ml -240 ml Intake Oral 50 ml 900 ml 400 ml 3926 ml IV Total 1564 ml Output Urine Total 100 ml 950 ml 500 ml 5730 ml # Voids 2 9 # Bowel Movements 3 3 Exam Gen.-Obese Elderly female climbing out of bed, ambulating with assistance to the bathroom, pleasant Eyes- open, conjunctivae clear, no drainage ENT- ears normal, nose normal Neck- supple/trach midline CVS- normal rate Lungs- normal rate, no accessory muscles patient was snoring initially GI- generous pannus Musc- moving 4 no obvious deformity Neuro- cranial nerves II through XII intact to gross examination, nonfocal, awake/alert today Skin- warm and dry, no rashes/lesions/wounds noted psych- Pleasant, appropriate, confused easily directable Lab and Diagnostics Result Diagram: 09/02/16 1255 09/02/16 1255 X-Rays, CTs and MRIs [facility] Diagnostic [place] [address] PATIENT NAME: STEPH MEDINA MR#: [id number] LOCATION: [facility] ORDERING PHYS: Que Laboy MD DATE OF SERVICE: 03/19/16 1534 PROCEDURE: MRI STROKE PROTOCOL ([id number]) Pre- and post-contrast brain MRI, non-contrast brain MR angiogram, pre- and postcontrast neck MR angiogram INDICATIONS: syncope/dizziness TECHNIQUE: Brain: Noncontrast axial T1 spin echo, axial T2 fast spin echo, sagittal and axial FLAIR, coronal T2 fast spin echo, axial gradient echo, axial diffusion and ADC through the brain. After the administration of contrast, axial 3D VIBE of the cranial vasculature and brain. Brain MRA: Non-contrast 3-D time of flight MR angiogram, with multiple maximum- intensity-projection (MIP) reformats performed. Neck MRA: Axial and sagittal TruFISP through the neck. Coronal dynamic MR angiogram during administration of contrast in the arterial and venous phases, with 3-dimenstional msgcebe-iogngstwf-uhcextkgds (MIP) reformats constructed from subtraction images. COMPARISON: None. FINDINGS: Image quality: Excellent. BRAIN: CSF spaces: Ventricles are normal in shape. Atrophic changes present. Basal cisterns are patent. No extra-axial fluid collections. Brain: No intracranial bleeds or mass effects. Lao-white matter interface is normal. Diffusion weighted images show no acute ischemic insults. Brainstem appears normal. Normal intravascular flow voids are present. No abnormal intracranial enhancement. There is a small lacune in the right thalamus. 6 mm size. Skull and face: Calvarial marrow signal is normal. Orbits appear normal. In the right parietal scalp there is a 12 mm lesion. The sella is normal in appearance. Sinuses: Sinuses and mastoids are clear. BRAIN MR ANGIOGRAM: Anterior circulation: Intracranial internal carotid arteries are normal in size and enhancement. The flow within the paired anterior cerebral arteries is normal and symmetric. The flow within the middle cerebral arteries is normal and symmetric. The anterior communicating artery is seen. There is at least stenosis of the proximal to midportion of the A2 segment of the left anterior cerebral artery. Posterior circulation: The visualized portions of the vertebral arteries demonstrate normal caliber, and join to form a normal appearing basilar artery. The flow within the posterior cerebral arteries is normal and symmetric. There is stenosis of the right posterior cerebral artery 1.5 cm from the origin. NECK MR ANGIOGRAM: Carotids: Great vessels demonstrate a conventional anatomy as they arise from the aortic arch. The origins of the common carotid arteries appear patent. The calibers and courses of both common carotid arteries are normal. Shows minimal irregularity at the origin of the right internal carotid artery. There is likely a 50% diameter stenosis at the origin of the left internal carotid artery.. The internal carotid arteries demonstrate normal course and caliber to the skull base.. Posterior circulation: The origins of the vertebral arteries appear patent. There is significant stenosis likely greater than 50% in the origin on the right and at the origin of the left vertebral arteries. More superior portions of both vertebral arteries demonstrate normal course and caliber, and join to form a normal appearing basilar artery. Miscellaneous: Subclavian arteries appear patent. There is thought to be a significant stenosis at the origin of the right subclavian artery. Pre-contrast images through the neck show no soft tissue abnormalities. IMPRESSION: BRAIN MRI: 1. No evidence for stroke is seen. Atrophic changes present. Small old lacunar infarct in the right thalamus is present. BRAIN MR ANGIOGRAM: MR angiogram of the brain shows irregular vascular sewell consistent with atherosclerotic change. There is significant stenosis at least of the A2 portion of the left anterior cerebral artery and the right posterior cerebral artery. No aneurysms. NECK MR ANGIOGRAM: There is significant stenosis at the origin of the right subclavian artery and the origin of both vertebral arteries. There is likely greater than 50% diameter stenosis at the origin of the left internal carotid artery. The estimate of stenosis included in the report of the imaging study was calculated using the NASCET method Dictated by: José Miguel Molina M.D. on 03/19/2016 at 19:50 Approved by: José Miguel Molina M.D. on 03/19/2016 at 19:50 [facility] Diagnostic [place] [address] Patient Name: STEPH MEDINA MR#: [id number] [place] [facility] [place] Phys: Keyla Caballero DO Date of Service: 08/29/16 1252 PROCEDURE: CT BRAIN WITHOUT CONTRAST ([id number]) INDICATIONS: fall, hit head TECHNIQUE: Noncontrast 4.5 mm thick angled axial sections acquired from the foramen magnum to the vertex, with coronal reformats. COMPARISON: [facility], CT, CT BRAIN WO CON, 03/19/2016, 9:56. FINDINGS: Image quality: Excellent. CSF spaces: Basal cisterns are patent. No extra-axial fluid collections. The ventricles are symmetric in size and shape. There is vckt-qg-svyftejj cerebral volume loss, with resultant ventricular and sulcal prominence. Brain: No intracranial hemorrhage, mass, or mass effect. There are subcortical , periventricular and deep white matter hypodensities consistent with mild-to- moderate chronic small vessel ischemic changes. There is also a small hypodensity in the right thalamus compatible with a prior lacunar infarct, unchanged from the prior study. There is intracranial internal carotid artery atherosclerosis. Skull and face: Calvarium and visualized facial bones appear intact, without suspicious lesions. There is a round subcutaneous lesion consistent with a sebaceous cyst in the right parietal scalp or Sinuses: Visualized sinuses and mastoids are clear. IMPRESSION: 1. No acute intracranial abnormality. 2. Unqi-ol-kxmrvmlx chronic white matter small vessel ischemic changes and cerebral line loss. Old right thalamic lacunar infarct redemonstrated. Dictated by: Pascual Garcia M.D. on 08/29/2016 at 16:55 Approved by: Pascual Garcia M.D. on 08/29/2016 at 16:58 Assessment & Plan 81-year-old female admitted 08/28 week/confused 08/31 assessing patient for the first time. Starting Seroquel prn anxiety/ insomnia stopping Haldol. Resuming Celexa as prior to admit, and starting ASA 81 mg daily 09/01 b Spoke to son @ bedside he desires mother to return to [facility] and not go to SNF. Finish course abx for UTI, Keflex 4 more days+lactobacillus, start metronidazole for C diff. Slept after , got quetiapine, slept all night, had sitter. 09/02 slept all day, waking up having diarrhea, changing to vancomycin today, reevaluating lab work today. Spoke to daughter who is just curious about what we were doing and what the overall plan/prognosis was 09/03 pleasant back to herself. Medically complex patient may be ready for discharge 09/04 #C diff- vancomycin 09/02-09/11 10 days - BM 08/29 + 08/31 (1 BM in house to that pt) -flagyl 09/01-09/02, started having diarrhea overnight 09/01-, not so much diarrhea today 09/03 #UTI- ua 08/28 (+)bacteria/packed WBCs, S Aureus not just colonized. Complete course w/ keflex 7 days total 09/01-09/04, start lactobacillus prophylaxis #Metabolic encephalopathy/Alzheimer's dementia-on memantadine 5mg QD -utilize Seroquel prn last dose 08/31 1845 -Pleasant and easily directable ambulating 09/03 #new Dx DM, Hyperglycemia-blood sugars 130s with morning labs. No treatment, no changes 09/03 -HG A1c 7.5 08/30 #HTN-SBP 107-134 09/03 -Controlled adequately with HCTZ patient was on lisinopril/indapamide prior to admit according to the medication reconciliation. #Anxiety-when necessary Seroquel, . Avoid benzodiazepines in patient with dementia. -Patient was on citalopram prior to admission this will be resumed. #Weakness-patient can apparently ambulate 120 feet and is acceptable for [facility] w/ home health PT 08/30 may need reassessment prior to discharge. #Hx CVA- -CT head + -low dose ASA 09/01. DO NOT RESUSCITATE per her daughter. Dispo- back to [facility] she was in independent probably needs memory care unit VTE Prophylaxis: Sub-Q Heparin (Unfractionated) VTE Mechanical Devices: Intermittant Pneumatic CD Resuscitation Status: DNR/DNI:Do Not Resuscitate/Intubate Ralf Rausch MD Sep 03, 2016 12:07
[2016-09-03 14:01] VITALS: BP 115/75; PULSE 70; RESP 17; O2SAT 95
--- NOTE | 2016-09-03 18:37 | NUR ---
Activity Pt up frequently to BR, but no stool during shift. Pt is pleasantly confused and alert to self only. She needs frequent reminders when up as to where BR is and not to let walker go out in front of her too far. Pt has denied pain during shift and was able to eat all meals w/o nausea. Took all medications w/o difficulty in applesauce. Addendum: 09/03/16 at 1853 by DAINA GARZA RN Pt refused afternoon Heparin dose stating "I'm so tired of needles." Pt up hourly to BR.
[2016-09-03 21:15] VITALS: BP 143/83; PULSE 82; RESP 18; O2SAT 95
[2016-09-04] MEDS: Sodium Chloride LOK Flush 10 mL Syringe IVFLUSH SCH ×4 (00:13→16:30)
[2016-09-04] MEDS: Heparin 5,000 Unit/mL Inj SUBQ SCH ×3 (00:17→16:30)
[2016-09-04] MEDS: Vancomycin 125 mg Oral Capsule PO SCH ×4 (03:09→22:29)
--- NOTE | 2016-09-04 04:12 | NUR ---
Update on pt. care Pt. has been sleeping throughout most of the shift. When woken up for scheduled medications, pt. is a bit groggy. Pt. is still confused at times. [place] bed alarm on for safety. Will continue to monitor.
[2016-09-04 05:06] VITALS: BP 107/71; PULSE 71; RESP 16; O2SAT 97
[2016-09-04] MEDS: BusPIRone 15 mg Dividose Tablet PO SCH ×2 (09:39→22:28)
--- NOTE | 2016-09-04 10:07 | NUR ---
STUART signed by DPASHER/JAMI due to pt's altered mental status. Angelica Dykes [employer]
--- NOTE | 2016-09-04 11:07 | NUR ---
Gave access and faxed facesheet to [facility] per [facility] Addendum: 09/04/16 at 1236 by JONATAN AGUILAR CM Patient has [facility] M[facility] and [facility] is not contracted, gave access and faxed facesheet to [facility] per [facility] Addendum: 09/04/16 at 1307 by JONATAN AGUILAR CM Spoke with Desmond from [facility] and they can accept patient when ready with to follow
--- NOTE | 2016-09-04 12:53 | PCM.PNMED ---
Subjective Date of Service Sep 04, 2016 Subjective Patient having some epigastric/abdominal pain today. She was initially somnolent and did not wake up for her assessment with the [facility] nurse. Now she is awake and I bet she would ambulate. No chest pain, no dyspnea, no nausea or vomiting Exam Vital Signs Vital Sign - Last Date Time Temp Pulse Resp B/P Pulse Ox O2 Delivery O2 Flow Rate FiO2 09/04/16 05:06 36.6 71 16 107/71 97 Room Air Intake and Output 09/03/16 09/03/16 09/04/16 Cumulative From/Thru 15:00 23:00 07:00 08/28/16 15:15 - 09/04/16 06:08 Intake Total 960 ml 100 ml 6550 ml Output Total 850 ml 200 ml 6780 ml Balance 110 ml -100 ml -230 ml Intake Oral 960 ml 100 ml 4986 ml IV Total 1564 ml Output Urine Total 850 ml 200 ml 6780 ml # Voids 3 12 # Bowel Movements 0 0 3 Exam Gen.-Obese Elderly female initially sleeping comfortably, now that she is awake and speaking she seems to be in mild distress because of her abdominal pain Eyes- open, conjunctivae clear, no drainage ENT- ears normal, nose normal Neck- supple/trach midline CVS- normal rate Lungs- normal rate, no accessory muscles patient was snoring initially GI- generous pannus Musc- moving 4 no obvious deformity Neuro- cranial nerves II through XII intact to gross examination, nonfocal, awake/alert today Skin- warm and dry, no rashes/lesions/wounds noted psych- Pleasant, appropriate, confused easily directable Lab and Diagnostics Result Diagram: 09/02/16 1255 09/02/16 1255 X-Rays, CTs and MRIs [facility] Diagnostic [place] [address] PATIENT NAME: STEPH MEDINA MR#: [id number] LOCATION: [facility] ORDERING PHYS: Que Laboy MD DATE OF SERVICE: 03/19/164 PROCEDURE: MRI STROKE PROTOCOL ([id number]) Pre- and post-contrast brain MRI, non-contrast brain MR angiogram, pre- and postcontrast neck MR angiogram INDICATIONS: syncope/dizziness TECHNIQUE: Brain: Noncontrast axial T1 spin echo, axial T2 fast spin echo, sagittal and axial FLAIR, coronal T2 fast spin echo, axial gradient echo, axial diffusion and ADC through the brain. After the administration of contrast, axial 3D VIBE of the cranial vasculature and brain. Brain MRA: Non-contrast 3-D time of flight MR angiogram, with multiple maximum- intensity-projection (MIP) reformats performed. Neck MRA: Axial and sagittal TruFISP through the neck. Coronal dynamic MR angiogram during administration of contrast in the arterial and venous phases, with 3-dimenstional gfnaioo-wrpszkbij-plwwtejyis (MIP) reformats constructed from subtraction images. COMPARISON: None. FINDINGS: Image quality: Excellent. BRAIN: CSF spaces: Ventricles are normal in shape. Atrophic changes present. Basal cisterns are patent. No extra-axial fluid collections. Brain: No intracranial bleeds or mass effects. Lao-white matter interface is normal. Diffusion weighted images show no acute ischemic insults. Brainstem appears normal. Normal intravascular flow voids are present. No abnormal intracranial enhancement. There is a small lacune in the right thalamus. 6 mm size. Skull and face: Calvarial marrow signal is normal. Orbits appear normal. In the right parietal scalp there is a 12 mm lesion. The sella is normal in appearance. Sinuses: Sinuses and mastoids are clear. BRAIN MR ANGIOGRAM: Anterior circulation: Intracranial internal carotid arteries are normal in size and enhancement. The flow within the paired anterior cerebral arteries is normal and symmetric. The flow within the middle cerebral arteries is normal and symmetric. The anterior communicating artery is seen. There is at least stenosis of the proximal to midportion of the A2 segment of the left anterior cerebral artery. Posterior circulation: The visualized portions of the vertebral arteries demonstrate normal caliber, and join to form a normal appearing basilar artery. The flow within the posterior cerebral arteries is normal and symmetric. There is stenosis of the right posterior cerebral artery 1.5 cm from the origin. NECK MR ANGIOGRAM: Carotids: Great vessels demonstrate a conventional anatomy as they arise from the aortic arch. The origins of the common carotid arteries appear patent. The calibers and courses of both common carotid arteries are normal. Shows minimal irregularity at the origin of the right internal carotid artery. There is likely a 50% diameter stenosis at the origin of the left internal carotid artery.. The internal carotid arteries demonstrate normal course and caliber to the skull base.. Posterior circulation: The origins of the vertebral arteries appear patent. There is significant stenosis likely greater than 50% in the origin on the right and at the origin of the left vertebral arteries. More superior portions of both vertebral arteries demonstrate normal course and caliber, and join to form a normal appearing basilar artery. Miscellaneous: Subclavian arteries appear patent. There is thought to be a significant stenosis at the origin of the right subclavian artery. Pre-contrast images through the neck show no soft tissue abnormalities. IMPRESSION: BRAIN MRI: 1. No evidence for stroke is seen. Atrophic changes present. Small old lacunar infarct in the right thalamus is present. BRAIN MR ANGIOGRAM: MR angiogram of the brain shows irregular vascular sewell consistent with atherosclerotic change. There is significant stenosis at least of the A2 portion of the left anterior cerebral artery and the right posterior cerebral artery. No aneurysms. NECK MR ANGIOGRAM: There is significant stenosis at the origin of the right subclavian artery and the origin of both vertebral arteries. There is likely greater than 50% diameter stenosis at the origin of the left internal carotid artery. The estimate of stenosis included in the report of the imaging study was calculated using the NASCET method Dictated by: José Miguel Molina M.D. on 03/19/2016 at 19:50 Approved by: José Miguel Molina M.D. on 03/19/2016 at 19:50 [facility] Diagnostic [place] [address] Patient Name: STEPH MEDINA MR#: [id number] [place] [facility] [place] Phys: Keyla Caballero DO Date of Service: 08/29/16 1252 PROCEDURE: CT BRAIN WITHOUT CONTRAST ([id number]) INDICATIONS: fall, hit head TECHNIQUE: Noncontrast 4.5 mm thick angled axial sections acquired from the foramen magnum to the vertex, with coronal reformats. COMPARISON: [facility], CT, CT BRAIN WO CON, 03/19/2016, 9:56. FINDINGS: Image quality: Excellent. CSF spaces: Basal cisterns are patent. No extra-axial fluid collections. The ventricles are symmetric in size and shape. There is zubp-yx-bhmazbgn cerebral volume loss, with resultant ventricular and sulcal prominence. Brain: No intracranial hemorrhage, mass, or mass effect. There are subcortical , periventricular and deep white matter hypodensities consistent with mild-to- moderate chronic small vessel ischemic changes. There is also a small hypodensity in the right thalamus compatible with a prior lacunar infarct, unchanged from the prior study. There is intracranial internal carotid artery atherosclerosis. Skull and face: Calvarium and visualized facial bones appear intact, without suspicious lesions. There is a round subcutaneous lesion consistent with a sebaceous cyst in the right parietal scalp or Sinuses: Visualized sinuses and mastoids are clear. IMPRESSION: 1. No acute intracranial abnormality. 2. Jybk-nk-zkxqoiwo chronic white matter small vessel ischemic changes and cerebral line loss. Old right thalamic lacunar infarct redemonstrated. Dictated by: Pascual Garcia M.D. on 08/29/2016 at 16:55 Approved by: Pascual Garcia M.D. on 08/29/2016 at 16:58 Assessment & Plan 81-year-old female admitted 08/28 week/confused 08/31 assessing patient for the first time. Starting Seroquel prn anxiety/ insomnia stopping Haldol. Resuming Celexa as prior to admit, and starting ASA 81 mg daily 09/01 b Spoke to son @ bedside he desires mother to return to [facility] and not go to SNF. Finish course abx for UTI, Keflex 4 more days+lactobacillus, start metronidazole for C diff. Slept after , got quetiapine, slept all night, had sitter. 09/02 slept all day, waking up having diarrhea, changing to vancomycin today, reevaluating lab work today. Spoke to daughter who is just curious about what we were doing and what the overall plan/prognosis was 09/03 pleasant back to herself. Medically complex patient may be ready for discharge 09/04 09/04 plan was to discharge back to [facility], patient was somnolent during assessment and they felt she needed to go to SNF. Now she is awake but has abdominal pain. Hopefully that passes and they can return and reassess her and take her back to [facility] as only moving her once would be optimal with this patient with dementia. #Abdominal pain-if this persists; repeat her labs and consider imaging of her abdomen hopefully it is just transient #C diff- vancomycin 09/02-09/11 10 days - BM 08/29 + 08/31 (1 BM in house to that pt) -flagyl 09/01-09/02, started having diarrhea overnight 09/01-, not so much diarrhea today 09/03 #UTI- ua 08/28 (+)bacteria/packed WBCs, S Aureus not just colonized. Complete course w/ keflex 7 days total 09/01-09/04, start lactobacillus prophylaxis #Metabolic encephalopathy/Alzheimer's dementia-on memantadine 5mg QD -utilize Seroquel prn last dose 08/31 1845 -Pleasant and easily directable ambulating 09/03. drowsy early, now back to herself 09/04 #new Dx DM, Hyperglycemia-blood sugars 130s with morning labs. No treatment, no changes 09/03 -HG A1c 7.5 08/30 #HTN-SBP 107-134 09/03, 107 143 09/04 -Controlled adequately with HCTZ -d/c'd prior to admit lisinopril/indapamide #Anxiety-when necessary Seroquel, . Avoid benzodiazepines in patient with dementia. -Patient was on citalopram prior to admission this will be resumed. #Weakness-patient can apparently ambulate 120 feet and is acceptable for [facility] w/ home health PT 08/30 may need reassessment prior to discharge. #Hx CVA- -CT head + -low dose ASA 09/01. DO NOT RESUSCITATE per her daughter. Dispo- back to [facility] she was in independent probably needs memory care unit VTE Prophylaxis: Sub-Q Heparin (Unfractionated) VTE Mechanical Devices: Intermittant Pneumatic CD Resuscitation Status: DNR/DNI:Do Not Resuscitate/Intubate Ralf Rausch MD Sep 04, 2016 12:53
[2016-09-04 13:40] VITALS: BP 136/83; PULSE 56; RESP 16; O2SAT 97
--- NOTE | 2016-09-04 15:24 | NUR ---
Social Work- Readiness for Discharge Data: EMR reviewed. Pt is on day 7 of hospitalization for UTI, Confusion per H&P. Pt is not medically stable, anticipate discharge tomorrow. AMY received call from Estrella, Qualitative Executive Researcher at [facility] [phone]. Estrella completed bedside assessment today at 11 am. Estrella states pt's needs are too great for pt to return back to [place]. AMY spoke with pt's daughter Nena regarding these recommendations, Nena agreeable to SNF referral. SNF Choice List provided. Choice 1)[facility], 2) [facility], 3) [facility] as a last resort. Pt has [facility] MCR. UR Specialist made referral to [facility] and [facility], as [facility] does not have a contract with [facility]. AMY notified that [facility] has accepted pt with MD Carter to follow. [facility] authorization to be obtained day of discharge. Pt to discharge to [facility] with MD Carter to follow. AMY updated daughter who will update family. All updated and agreeable to plan. Paperwork in chart, PASRR in folder. SW will continue to follow. Assessment: Pt who would benefit from SNF. Plan: Pt to discharge to [facility] with MD Carter to follow. All updated and agreeable to plan. Paperwork in chart, PASRR in folder. SW will continue to follow. UZIEL Newton
--- NOTE | 2016-09-04 16:11 | NUR ---
Anxiety/Meds At start of shift, pt aware of where she was and sleepy after going to the BR, not hungry for breakfast at that time. Let pt sleep, pt then awake, ate breakfast and noted to have labored breathing. Pt slow to respond, asking for [facility]. Pt confused (Alzheimers) and frightened. Stated, "I woke up and didn't know anybody here. Nobody was here. Where's Santo." D/t pt sleeping in this AM, had not yet received her morning meds. Pt received most of her medications, still frightened. When attempted to give pt Heparin injection - pt tearful and refusing as though she was being hurt. Pt stating, "no more" to her medications (bacid). Coached pt through therapeutic/controlled breathing, still anxious. Santo and add'l family later present at bedside. Pt comforted by their presence. Care continues.
[2016-09-04 17:27] VITALS: BP 137/83; PULSE 63; RESP 16; O2SAT 96
[2016-09-04 20:45] VITALS: BP 146/83; PULSE 75; RESP 20; O2SAT 98
[2016-09-05] MEDS: Sodium Chloride LOK Flush 10 mL Syringe IVFLUSH SCH ×2 (01:31→09:02)
[2016-09-05] MEDS: Heparin 5,000 Unit/mL Inj SUBQ SCH ×2 (01:32→09:05)
--- NOTE | 2016-09-05 04:47 | NUR ---
Anxiety Ambulated to bathroom SBA FWW, tolerated well. No noted Anxiety this shift. Patient sleeping for last six to eight hours, awoken once for medications, able to go right back to sleep.
[2016-09-05 05:39] VITALS: BP 138/83; PULSE 64; RESP 18; O2SAT 98
[2016-09-05] MEDS: Vancomycin 125 mg Oral Capsule PO SCH ×3 (05:44→13:14)
[2016-09-05] MEDS: BusPIRone 15 mg Dividose Tablet PO SCH (09:03)
[2016-09-05 09:18] LABS: BASOPHILS % (AUTO) 0.6 % (0-3); EOSINOPHILS % (AUTO) 5.4 % (0-5); MONOCYTES % (AUTO) 8.7 % (4-12); Mean Corpuscular Hemoglobin 30.4 pg (27.0-35.0); Mean Corpuscular Volume 87.7 fL (81-100); NEUTROPHILS % (AUTO) 57.2 % (40-74); Platelet Count 390 bil/L (150-400)
[2016-09-05 10:28] VITALS: PULSE 97
--- NOTE | 2016-09-05 11:10 | NUR ---
Case Management D: Clinicals faxed to [facility] for SNF auth. Addendum: 09/05/16 at 1320 by MAKEDA MALDONADO SS Authorization for d/c to SNF given by Elaina. Per Elaina this is for short stay only, approx 2 wks. UZIEL to inform family. This information given to Idalmis TRIPLETT
--- NOTE | 2016-09-05 11:15 | PCM.DIMED ---
Discharge Instructions Date of Service Sep 05, 2016 Dates of Hospitalization Aug 28, 2016 at 18:25 Discharge Diagnosis Discharge Diagnosis C. difficile infection, finished 10 days of therapy on 09/11 Acute UTI, finished cephalosporin antibiotics Alzheimer's dementia New diagnosis of diabetes mellitus hypertension Anxiety History of CVA Medication Instructions Patient to continue for a full 7 day course of oral vancomycin for C. difficile Completed a cephalexin oral regimen for UTI while hospitalized Test Results CT had COMPARISON: [facility], CT, CT BRAIN WO CON, 03/19/2016, 9:56. FINDINGS: Image quality: Excellent. CSF spaces: Basal cisterns are patent. No extra-axial fluid collections. The ventricles are symmetric in size and shape. There is upoi-ep-eirbfhqm cerebral volume loss, with resultant ventricular and sulcal prominence. Brain: No intracranial hemorrhage, mass, or mass effect. There are subcortical , periventricular and deep white matter hypodensities consistent with mild-to- moderate chronic small vessel ischemic changes. There is also a small hypodensity in the right thalamus compatible with a prior lacunar infarct, unchanged from the prior study. There is intracranial internal carotid artery atherosclerosis. Skull and face: Calvarium and visualized facial bones appear intact, without suspicious lesions. There is a round subcutaneous lesion consistent with a sebaceous cyst in the right parietal scalp or Sinuses: Visualized sinuses and mastoids are clear. IMPRESSION: 1. No acute intracranial abnormality. 2. Eoop-rb-ukjzingm chronic white matter small vessel ischemic changes and cerebral line loss. Old right thalamic lacunar infarct redemonstrated. Coag negative staph UTI on 08/28 Diet Heart Healthy, Diabetic Activity Other (senior care facility for PT/OT and cognitive therapy) Call your provider Fever or Chills, Shortness of breath Patient Instructions Patient to be discharged to [facility] for continued rehabilitation and completion of her vancomycin regimen as well as optimization for cognitive therapy, PT/OT - with increasing needs noted at [facility]. Per director social: W received call from Estrella, Dog Show Judge at [facility] [phone]. Estrella completed bedside assessment today at 11 am. Estrella states pt's needs are too great for pt to return back to [place]. AMY spoke with pt's daughter Nena regarding these recommendations, Nena agreeable to SNF referral. Follow-up plan Follow-up with PCP after discharge from senior care facility, Dr. Radha Leo. Will be seen by senior care facility physician as well, appreciate continued care Follow-up Provider: Radha Leo Follow-up with PCP in: Other (after discharge from senior care facility) Provider: Jo Ann Flowers MD, David DO Sep 05, 2016 11:15
[2016-09-05] MEDS ORDERED: Lactobacillus Acidophilus PO (11:22)
[2016-09-05] MEDS ORDERED: NAM10 PO (11:22)
[2016-09-05] MEDS ORDERED: VANC125C3 PO (11:22)
[2016-09-05] MEDS ORDERED: ASPI81TA3 PO (11:22)
--- NOTE | 2016-09-05 11:29 | PCM.DC.MED ---
Discharge Summary Date of Service Sep 05, 2016 Dates of Hospitalization Date of Hospital Admission Aug 28, 2016 at 18:25 Date of Discharge: Sep 05, 2016 Providers: Admitting Physician: Daniel Talley MD Primary Care Physician: Radha Leo Attending Physician: Daniel Talley MD Diagnosis at Time of Discharge Diagnosis at Time of Discharge C. difficile infection, finishing 10 days of therapy on 09/11 Acute UTI, finished cephalosporin antibiotics while hospitalized Alzheimer's dementia New diagnosis of diabetes mellitus hypertension Anxiety History of CVA Procedures XRay, CTs & MRIs [facility] Diagnostic [place] [address] PATIENT NAME: STEPH MEDINA MR#: [id number] [place] [facility] [place] PHYS: Que Laboy MD DATE OF SERVICE: 03/19/16 1534 PROCEDURE: MRI STROKE PROTOCOL ([id number]) Pre- and post-contrast brain MRI, non-contrast brain MR angiogram, pre- and postcontrast neck MR angiogram INDICATIONS: syncope/dizziness TECHNIQUE: Brain: Noncontrast axial T1 spin echo, axial T2 fast spin echo, sagittal and axial FLAIR, coronal T2 fast spin echo, axial gradient echo, axial diffusion and ADC through the brain. After the administration of contrast, axial 3D VIBE of the cranial vasculature and brain. Brain MRA: Non-contrast 3-D time of flight MR angiogram, with multiple maximum- intensity-projection (MIP) reformats performed. Neck MRA: Axial and sagittal TruFISP through the neck. Coronal dynamic MR angiogram during administration of contrast in the arterial and venous phases, with 3-dimenstional mfyyvpm-tapqjrzxy-ojijwarzxn (MIP) reformats constructed from subtraction images. COMPARISON: None. FINDINGS: Image quality: Excellent. BRAIN: CSF spaces: Ventricles are normal in shape. Atrophic changes present. Basal cisterns are patent. No extra-axial fluid collections. Brain: No intracranial bleeds or mass effects. Lao-white matter interface is normal. Diffusion weighted images show no acute ischemic insults. Brainstem appears normal. Normal intravascular flow voids are present. No abnormal intracranial enhancement. There is a small lacune in the right thalamus. 6 mm size. Skull and face: Calvarial marrow signal is normal. Orbits appear normal. In the right parietal scalp there is a 12 mm lesion. The sella is normal in appearance. Sinuses: Sinuses and mastoids are clear. BRAIN MR ANGIOGRAM: Anterior circulation: Intracranial internal carotid arteries are normal in size and enhancement. The flow within the paired anterior cerebral arteries is normal and symmetric. The flow within the middle cerebral arteries is normal and symmetric. The anterior communicating artery is seen. There is at least stenosis of the proximal to midportion of the A2 segment of the left anterior cerebral artery. Posterior circulation: The visualized portions of the vertebral arteries demonstrate normal caliber, and join to form a normal appearing basilar artery. The flow within the posterior cerebral arteries is normal and symmetric. There is stenosis of the right posterior cerebral artery 1.5 cm from the origin. NECK MR ANGIOGRAM: Carotids: Great vessels demonstrate a conventional anatomy as they arise from the aortic arch. The origins of the common carotid arteries appear patent. The calibers and courses of both common carotid arteries are normal. Shows minimal irregularity at the origin of the right internal carotid artery. There is likely a 50% diameter stenosis at the origin of the left internal carotid artery.. The internal carotid arteries demonstrate normal course and caliber to the skull base.. Posterior circulation: The origins of the vertebral arteries appear patent. There is significant stenosis likely greater than 50% in the origin on the right and at the origin of the left vertebral arteries. More superior portions of both vertebral arteries demonstrate normal course and caliber, and join to form a normal appearing basilar artery. Miscellaneous: Subclavian arteries appear patent. There is thought to be a significant stenosis at the origin of the right subclavian artery. Pre-contrast images through the neck show no soft tissue abnormalities. IMPRESSION: BRAIN MRI: 1. No evidence for stroke is seen. Atrophic changes present. Small old lacunar infarct in the right thalamus is present. BRAIN MR ANGIOGRAM: MR angiogram of the brain shows irregular vascular sewell consistent with atherosclerotic change. There is significant stenosis at least of the A2 portion of the left anterior cerebral artery and the right posterior cerebral artery. No aneurysms. NECK MR ANGIOGRAM: There is significant stenosis at the origin of the right subclavian artery and the origin of both vertebral arteries. There is likely greater than 50% diameter stenosis at the origin of the left internal carotid artery. The estimate of stenosis included in the report of the imaging study was calculated using the NASCET method Dictated by: José Miguel Molina M.D. on 03/19/2016 at 19:50 Approved by: José Miguel Molina M.D. on 03/19/2016 at 19:50 [facility] Diagnostic [place] [address] Patient Name: STEPH MEDINA MR#: [id number] [place] [facility] [place] Phys: Keyla Caballero DO Date of Service: 08/29/16 1252 PROCEDURE: CT BRAIN WITHOUT CONTRAST ([id number]) INDICATIONS: fall, hit head TECHNIQUE: Noncontrast 4.5 mm thick angled axial sections acquired from the foramen magnum to the vertex, with coronal reformats. COMPARISON: [facility], CT, CT BRAIN WO CON, 03/19/2016, 9:56. FINDINGS: Image quality: Excellent. CSF spaces: Basal cisterns are patent. No extra-axial fluid collections. The ventricles are symmetric in size and shape. There is jykd-be-idztusye cerebral volume loss, with resultant ventricular and sulcal prominence. Brain: No intracranial hemorrhage, mass, or mass effect. There are subcortical , periventricular and deep white matter hypodensities consistent with mild-to- moderate chronic small vessel ischemic changes. There is also a small hypodensity in the right thalamus compatible with a prior lacunar infarct, unchanged from the prior study. There is intracranial internal carotid artery atherosclerosis. Skull and face: Calvarium and visualized facial bones appear intact, without suspicious lesions. There is a round subcutaneous lesion consistent with a sebaceous cyst in the right parietal scalp or Sinuses: Visualized sinuses and mastoids are clear. IMPRESSION: 1. No acute intracranial abnormality. 2. Cjll-uk-zwplpikc chronic white matter small vessel ischemic changes and cerebral line loss. Old right thalamic lacunar infarct redemonstrated. Dictated by: Pascual Garcia M.D. on 08/29/2016 at 16:55 Approved by: Pascual Garcia M.D. on 08/29/2016 at 16:58 Brief History History of present illness as per admitting physician: 81-year-old female with malaise since yesterday and so weak today that she could not get up off the floor after she sat down, also appeared confused and agitated at assisted living, deemed to have had a panic attack. Per friend, she has not been coughing sneezing diarrhea. Unlike last UTI admission, this time she has no urinary urgency, no vaginal itch. Per assisted living, she was thought to have an anxiety attack. EtOH intake is "not much" In the ER vital signs stable, Rocephin and Haldol for anxiety, she would not allow groin examination by nurse March 2016 Escherichia coli UTI resistant to ampicillin and intermediate today imipenem otherwise pansensitive, associated Ground-level fall Review of Systems - none of the following - F/C/sick contact / wt change/ WILKES / sob / cough / cp / acid reflux / n/v/diarrhea / bleeding/bruising / leg swelling / change in voiding / yeast infections / rash ambulates FAMILY HX cancer/Alzheimer's SOCIAL HX lives in assisted living facility, never smoker, EtOH+ MEDICATIONS Scheduled Citalopram (Citalopram) 10 Mg Tablet 10 MG PO QAM Indapamide (Indapamide) 1.25 Mg Tablet 1.25 MG PO QAM Lisinopril (Lisinopril) 40 Mg Tablet 40 MG PO DAILY Lorazepam (Lorazepam) 1 Mg Tablet 1 MG PO DAILY PRN PRN For Anxiety or Agitation Past Medical/Surgical HX Hypertension Hyperlipidemia Dementia/Alzheimer's Anxiety associated shortness of breath / Panic attacks Abdominal Mass of unclear etiology and signficance - being followed Recurrent UTIs Endometriosis Past Surgical History Left hip surgery Hysterectomy, Tonsillectomy Esophagitis incidental finding with hiatal hernia and nighttime complaint of acid reflux Echo September 2015 EF 65% diastolic grade 1 dysfunction Hospital Course 81-year-old female admitted 08/28 week/confused 08/31 assessing patient for the first time. Starting Seroquel prn anxiety/ insomnia stopping Haldol. Resuming Celexa as prior to admit, and starting ASA 81 mg daily 09/01 b Spoke to son @ bedside he desires mother to return to [place] and not go to SNF. Finish course abx for UTI, Keflex 4 more days+lactobacillus, start metronidazole for C diff. Slept after , got quetiapine, slept all night, had sitter. 09/02 slept all day, waking up having diarrhea, changing to vancomycin today, reevaluating lab work today. Spoke to daughter who is just curious about what we were doing and what the overall plan/prognosis was 09/03 pleasant back to herself. Medically complex patient may be ready for discharge 09/04 09/04 plan was to discharge back to [facility], patient was somnolent during assessment and they felt she needed to go to SNF. Now she is awake but has abdominal pain. Hopefully that passes and they can return and reassess her and take her back to [facility] as only moving her once would be optimal with this patient with dementia. #C diff- vancomycin 09/02-09/11 10 days - BM 08/29 + 08/31 (1 BM in house to that pt) -flagyl 09/01-09/02, started having diarrhea overnight 09/01-, not so much diarrhea today 09/03, improved frequency of bowel movements at the time of discharge #UTI- ua 08/28 (+)bacteria/packed WBCs, S Aureus not just colonized. Completed course w/ keflex 7 days total 09/01-09/04, start lactobacillus prophylaxis and continue at discharge for 2 weeks #Metabolic encephalopathy/Alzheimer's dementia-on memantadine 5mg QD -utilize Seroquel prn last dose 08/31 1844, may consider as needed Seroquel at [facility] -Pleasant and easily directable ambulating 09/03. drowsy early, now back to herself 09/04, ready for discharge today 09/05 #new Dx DM, Hyperglycemia-blood sugars 130s with morning labs. No treatment, no changes 09/03 -HG A1c 7.5 08/30 -Added aspirin 81 mg #HTN-SBP 107-134 09/03, 107 143 09/04 -Controlled adequately with HCTZ -d/c'd prior to admit lisinopril/indapamide -- will discharge patient was continuous and appropriate regimen, holding indapamide which may be restarted if needed after blood pressures remain stable at [facility] facility #Anxiety-when necessary Seroquel, . Avoid benzodiazepines in patient with dementia. -Patient was on citalopram prior to admission this will be resumed and continued at discharge #Weakness-patient can apparently ambulate 120 feet and is acceptable for [facility] w/ home health PT 08/30 may need reassessment prior to discharge. Per PT note 09/05:Pt sleeping in chair upon arrival, easily aroused, extremely pleasant and agreeable to participate in skilled PT this AM. Sit to stand w/FWW x 2; 1x Gabriela to stabilize FWW, 1x CGA. Amb w/FWW 2 x 15ft CGA around bed and back w/brief seated rest; initially pt amb w/step through gait pattern, good glide and proximity w/FWW, as distance progressed pt demonstrated decreased step length and step height and breathing became more labored. Spo2 remained 99% throughout despite c/o SOB from pt, HR up to high 90s from resting HR of 74. Pt declined further attempts at amb. Seated in chair, tmia alarm set, tray table and call light in reach, nsg notified. Rec d/c to SNF to increase functinal mobility and for safety trainign with AD (pt has previously refused to use AD). Transport via CAB or POV. #Hx CVA- -CT head + -low dose ASA 09/01. DO NOT RESUSCITATE per her daughter. Dispo-patient previously resided at [facility] she was in independent probably needs memory care unit - now we will be planning to go to [facility] for continued rehabilitation and increased needs Exam Vital Signs (Last) Date Time Temp Pulse Resp B/P Pulse Ox O2 Delivery O2 Flow Rate FiO2 09/05/16 10:28 97 Room Air 09/05/16 05:39 36.6 18 138/83 98 Exam Gen. Elderly female, no acute distress, resting comfortably Eyes- open, conjunctivae clear, no drainage ENT- ears normal, nose normal Neck- supple/trach midline CVS- normal rate Lungs- normal rate, no accessory muscles patient was snoring initially GI- generous pannus, mild epigastric tenderness, no guarding or peritoneal symptoms, no murmur, no pulsations Musc- moving 4 no obvious deformity Neuro- cranial nerves II through XII intact to gross examination, nonfocal, awake/alert today Skin- warm and dry, no rashes/lesions/wounds noted psych- Pleasant, appropriate, confused easily directable Test 08/28/16 15:25 08/28/16 15:49 08/28/16 17:17 08/29/16 04:56 Hold Urine Received (Received) Lactic Acid Level 1.5mmol/L (0.4-2.0) Urine Color Yellow (YELLOW) Urine Appearance Cloudy (CLEAR,HAZY) Urine pH 5.5 (5.0-8.0) Urine Specific [place] 1.010 (1.003-1.035) Urine Protein Negativemg/dL (NEG,TRACE) Urine Glucose (UA) Negativemg/dL (NEGATIVE) Urine Ketones Tracemg/dL (NEGATIVE) Urine Occult Blood Small (NEGATIVE) Urine Nitrite Negative (NEGATIVE) Urine Bilirubin Negative (NEGATIVE) Urine Urobilinogen Normalmg/dL (NORMAL) Urine Leukocyte Esterase Large (NEGATIVE) Urine RBC 0-2/hpf (0-2) Urine WBC Packed/hpf (0-5) Urine Epithelial Cells Occasional/hpf (NONE-MOD) Urine Crystals None seen (NONE SEEN) Urine Bacteria Moderate/hpf (NONE-FEW) Urine Hyaline Casts None/lpf (NONE) Urine Granular Casts None seen (NONE SEEN) Urine Waxy Casts None seen (NONE SEEN) Urine Red Blood Cell Casts None seen (NONE SEEN) Urine White Blood Cell Casts None seen (NONE SEEN) Urine Mucus None seen (None Seen) Urine Trichomonas None seen (NONE SEEN) Urine Yeast None (NONE SEEN) Urinalysis Comment None Urine Culture Reflexed Indicated Troponin T 0.010ug/L (0.0-0.011) Free Thyroxine Index 1.8 (1.2-4.9) Thyroxine (T4) 5.8ug/dL (4.5-12.0) Triiodothyronine (T3) Uptake 31% (24-39) Cortisol 14.8ug/dL (.) Test 08/29/16 13:15 08/30/16 06:36 09/02/16 12:55 09/05/16 08:45 Phosphorus Level 2.7mg/dL (2.5-4.9) Hemoglobin A1c 7.5% (4.8-5.6) Total Bilirubin 0.6mg/dL (0.0-1.2) Aspartate Amino Transf (AST/SGOT) 20U/L (0-50) Alanine Aminotransferase (ALT/SGPT) 17U/L (0-32) Alkaline Phosphatase 64U/L (25-165) Total Protein 6.6g/dL (6.4-8.4) Albumin 4.0g/dL (3.4-5.0) Magnesium Level 2.2mg/dL (1.6-2.6) White Blood Count 9.0th/mm3 (3.8-10.1) Red Blood Count 4.80mil/mm3 (3.90-5.20) Hemoglobin 14.6g/dL (12.0-15.6) Hematocrit 42.1% (35.0-46.0) Mean Corpuscular Volume 87.7fL (81-100) Mean Corpuscular Hemoglobin 30.4pg (27.0-35.0) Mean Corpuscular Hemoglobin Concent 34.7% (32.0-37.0) Red Cell Distribution Width 14.5% (12.3-15.4) Platelet Count 390bil/L (150-400) Neutrophils (%) (Auto) 57.2% (40-74) Lymphocytes (%) (Auto) 27.1% (14-46) Monocytes (%) (Auto) 8.7% (4-12) Eosinophils (%) (Auto) 5.4% (0-5) Basophils (%) (Auto) 0.6% (0-3) Sodium Level 135mEq/L (134-144) Potassium Level 4.8mEq/L (3.5-5.2) Chloride Level 95mEq/L (97-108) Carbon Dioxide Level 23mmol/L (18-29) Blood Urea Nitrogen 18mg/dL (8-27) Creatinine 1.20mg/dL (0.57-1.00) Estimat Glomerular Filtration Rate 62mL/min (>59) Glucose Level 133mg/dL (60-99) Calcium Level 10.0mg/dL (8.5-10.1) Discharge Medications Discharge Medications ([Lactobacillus Acidophilus]) 1 TABLET TABLET 2 TABLET PO PCHS Prescribed by: LILI SEPULVEDA DO Aspirin Chew (Aspirin Chew) 81 Mg Chew 81 MG PO DAILY Prescribed by: LILI SEPULVEAD DO Citalopram (Citalopram) 10 Mg Tablet 10 MG PO QAM (Reported) Lisinopril (Lisinopril) 40 Mg Tablet 40 MG PO DAILY (Reported) Memantine (Namenda) 10 Mg Tablet 5 MG PO DAILY Prescribed by: LILI SEPULVEDA DO Vancomycin (Vancomycin) 125 Mg Capsule 125 MG PO Q6 Prescribed by: LILI SEPULVEDA DO As needed Lorazepam (Lorazepam) 1 Mg Tablet 1 MG PO DAILY PRN PRN For Anxiety or Agitation (Reported) Additional med instructions Patient to continue for a full 7 day course of oral vancomycin for C. difficile Completed a cephalexin oral regimen for UTI while hospitalized Followup Plan Follow-up plan Follow-up with PCP [facility], Dr. Radha Leo. Will be seen by [facility] physician as well, appreciate continued care Discharge Diet: Heart Healthy, Diabetic Discharge Activity: Other ([facility]entiary facility for PT/OT and cognitive therapy) Patient Instructions Patient to be discharged to [facility] for continued rehabilitation and completion of her vancomycin regimen as well as optimization for cognitive therapy, PT/OT - with increasing needs noted at [facility]. Per social work faculty member: Marcelle received call from Estrella, Probate Judge at [facility] [phone]. Estrella completed bedside assessment today at 11 am. Estrella states pt's needs are too great for pt to return back to [facility]. AMY spoke with pt's daughter Nena regarding these recommendations, Nena agreeable to SNF referral. Follow-up Provider: Radha Leo Follow-up with PCP in: Other (after discharge from [facility]) Provider: Jo Ann Flowers MD Time spent 45 minutes spent with discharge and evaluation of this patient. Greater than 50 % time spent [id number] with coordination of care and counseling copies to: Radha Leo; Jo Ann Flowers MD, David DO Sep 05, 2016 11:29
--- NOTE | 2016-09-05 13:40 | NUR ---
Social Work- Discharge Data: EMR reviewed. Pt is on day 8 of hospitalization for UTI, Confusion per H&P. Pt is medically stable to discharge today. [facility] has authorized pt to discharge to [facility] for a short stay of 2 weeks. PT evaluation 09/05 recommending d/c to SNF to increase functional mobility and for safety training with AD (pt has previously refused to use AD). AMY notified pt and family at bedside and called Nena regarding discharge plan. Family agreeable to transport pt via POV. AMY spoke with Ramonita, italo at [facility], who is agreeable to accepting pt today. AMY created packet and faxed orders. Pt to discharge to [facility] via POV with MD Carter to follow. Pt, family, RN, UC, and [facility] all updated and agreeable to plan. Assessment: Pt who would benefit from SNF. Plan: PT recommending SNF. [facility] authorization obtained. Pt to discharge to [facility] via POV today. Pt, family, RN, UC, and [facility] all updated and agreeable to plan. Angelica Dykes SUPERVISOR TITLE
--- NOTE | 2016-09-05 17:47 | NUR ---
Discharge pt discharged to [facility] in [place] at 1450; left via w/c with family. This RN went over discharge paperwork with family and CM had put together packet including hard copy scripts. Family without questions/concerns at dc. All personal belongings in hand. A&O to self - calm with family present, VSS, No c/o pain, BRANCH, IV dc'd by customer support executive. Report called to Adrianne of [facility] at [phone] prior to pt dc.
== END 2016-09-05 15:55 | DRG 689 ==
LOC: SED 15:11 → OSC 18:25 → OBSVTOIN 18:25
PROVIDERS: ADMIT Urology; ATTEND Urology
DX: N39.0 Urinary tract infection, site not specified (principal); G93.41 Metabolic encephalopathy; A04.7 Enterocolitis due to Clostridium difficile; F05 Delirium due to known physiological condition; G30.9 Alzheimer's disease, unspecified; F02.80 Dementia in other diseases classified elsewhere, unspecified severity, without behavioral disturbance, psychotic disturbance, mood disturbance, and anxiety; I10 Essential (primary) hypertension; F41.9 Anxiety disorder, unspecified; Z66 Do not resuscitate; E11.65 Type 2 diabetes mellitus with hyperglycemia; B95.7 Other staphylococcus as the cause of diseases classified elsewhere; L72.3 Sebaceous cyst; Z86.73 Personal history of transient ischemic attack (TIA), and cerebral infarction without residual deficits